=== PATIENT | female | born 1965 | race Caucasian/White ===

== ENCOUNTER → 2017-07-03 | Outpatient (CLI) | payer OTHER ==
--- NOTE | 2017-07-03 15:50 | WOMENS IMAGING REPORT ---
EXAM DESCRIPTION: BILAT DIAGNOSTIC MAMMO W/CAD; U/S BREAST UNILAT LIMITED COMPLETED DATE/TIME: 07/03/2017 8:27 am; 07/03/2017 9:06 am REASON FOR STUDY: NODULAR DENSITY; RT BREAST N63 N63 UNSPECIFIED LUMP IN BREAST COMPARISON: None. TECHNIQUE: Standard craniocaudal and mediolateral oblique views of each breast recorded using digita l acquisition. Additional images of the right breast include a true lateral view and spot compression lateral and CC views. LIMITATIONS: None. FINDINGS: RIGHT BREAST MASSES: No suspicious masses. CALCIFICATIONS: Benign-appearing calcifications. No suspicious calcifications. ARCHITECTURAL DISTORTION: None. DEVELOPING DENSITY: None. ASYMMETRY: None noted. OTHER: No other significant findings. LEFT BREAST MASSES: No suspicious masses. CALCIFICATIONS: Benign-appearing calcifications. No suspicious calcifications. ARCHITECTURAL DISTORTION: None. DEVELOPING DENSITY: None. ASYMMETRY: None noted. OTHER: No other significant finding. Read with the assistance of CAD: .[facility] - R2 Cenova Version 1.3 .[facility] - R2 Cenova Version 1.3 .[facility] - R2 Cenova Version 2.4 .[facility] [place] - R2 Cenova Version 2.4 .[facility] - R2 Supervisor Paper Machine Version 9.2 BREAST ULTRASOUND: TECHNIQUE: Static and dynamic grayscale images acquired of the right breast in the specific areas of clinical/mammographic concern. Selected color Doppler images recorded. ELASTOGRAPHY PERFORMED: No. LIMITATIONS: None. FINDINGS: MASS: No mass identified. Normal glandular tissue. ELASTOGRAPHY CHARACTERISTICS: Not applicable. OTHER: No other significant finding. IMPRESSION: Unremarkable bilateral mammogram. No worrisome mammographic or sonographic findings in the right breast in the area of concern. BREAST DENSITY: b. There are scattered areas of fibroglandular density. BIRAD: 2 Benign findings. RECOMMENDATION: RECOMMENDED FOLLOW UP: Birads 1 or 2: No breast imaging finding to explain the patie nt's presenting complaint. Further intervention should be based on the degree of clinical suspicion. SPECIFIC INTERVENTION/IMAGING/CONSULTATION RECOMMENDED:No additional intervention/ imaging/consultati on needed at this time. COMMUNICATION:The imaging findings were not discussed with the patient. Her referring provider has be en notified of the findings. COMMENT: The patient has been notified of the results by letter per MQSA requirements. Additional no tification policies are in place for contacting patient with suspicious or incomplete findings. Quality ID #225: The [employer] recommends an annual screening mammogram for women aged 40 years or over. This facility utilizes a reminder system to ensure that all patients receive reminder letters, and/or direct phone calls for appointments. This includes reminders for routine scr eening mammograms, diagnostic mammograms, or other Breast Imaging Interventions when appropriate. Th is patient will be placed in the appropriate reminder system. The [employer] (ACR) has developed recommendations for screening MRI of the breast s in certain patient populations, to be used in conjunction with mammography. Breast MRI surveillanc e may be appropriate for women with more than 20% lifetime risk of developing breast cancer as deter mined by genetic testing, significant family history of the disease, or history of mantle radiation f or Hodgkins Disease. ACR Practice Guidelines 2008. TECHNICAL DOCUMENTATION: FINDING NUMBER: (1) ASSESSMENT: (1) JOB ID: [id number] [employer]- All Rights Reserved
--- NOTE | 2017-07-03 15:50 | WOMENS IMAGING REPORT ---
EXAM DESCRIPTION: BILAT DIAGNOSTIC MAMMO W/CAD; U/S BREAST UNILAT LIMITED COMPLETED DATE/TIME: 07/03/2017 8:27 am; 07/03/2017 9:06 am REASON FOR STUDY: NODULAR DENSITY; RT BREAST N63 N63 UNSPECIFIED LUMP IN BREAST COMPARISON: None. TECHNIQUE: Standard craniocaudal and mediolateral oblique views of each breast recorded using digita l acquisition. Additional images of the right breast include a true lateral view and spot compression lateral and CC views. LIMITATIONS: None. FINDINGS: RIGHT BREAST MASSES: No suspicious masses. CALCIFICATIONS: Benign-appearing calcifications. No suspicious calcifications. ARCHITECTURAL DISTORTION: None. DEVELOPING DENSITY: None. ASYMMETRY: None noted. OTHER: No other significant findings. LEFT BREAST MASSES: No suspicious masses. CALCIFICATIONS: Benign-appearing calcifications. No suspicious calcifications. ARCHITECTURAL DISTORTION: None. DEVELOPING DENSITY: None. ASYMMETRY: None noted. OTHER: No other significant finding. Read with the assistance of CAD: .[facility] - R2 Cenova Version 1.3 .[facility] - R2 Cenova Version 1.3 .[facility] - R2 Cenova Version 2.4 .[facility] - R2 Cenova Version 2.4 .[facility] - R2 Regional Driver Version 9.2 BREAST ULTRASOUND: TECHNIQUE: Static and dynamic grayscale images acquired of the right breast in the specific areas of clinical/mammographic concern. Selected color Doppler images recorded. ELASTOGRAPHY PERFORMED: No. LIMITATIONS: None. FINDINGS: MASS: No mass identified. Normal glandular tissue. ELASTOGRAPHY CHARACTERISTICS: Not applicable. OTHER: No other significant finding. IMPRESSION: Unremarkable bilateral mammogram. No worrisome mammographic or sonographic findings in the right breast in the area of concern. BREAST DENSITY: b. There are scattered areas of fibroglandular density. BIRAD: 2 Benign findings. RECOMMENDATION: RECOMMENDED FOLLOW UP: Birads 1 or 2: No breast imaging finding to explain the patie nt's presenting complaint. Further intervention should be based on the degree of clinical suspicion. SPECIFIC INTERVENTION/IMAGING/CONSULTATION RECOMMENDED:No additional intervention/ imaging/consultati on needed at this time. COMMUNICATION:The imaging findings were not discussed with the patient. Her referring provider has be en notified of the findings. COMMENT: The patient has been notified of the results by letter per MQSA requirements. Additional no tification policies are in place for contacting patient with suspicious or incomplete findings. Quality ID #225: [employer] recommends an annual screening mammogram for women aged 40 years or over. This facility utilizes a reminder system to ensure that all patients receive reminder letters, and/or direct phone calls for appointments. This includes reminders for routine scr eening mammograms, diagnostic mammograms, or other Breast Imaging Interventions when appropriate. Th is patient will be placed in the appropriate reminder system. The [employer] (ACR) has developed recommendations for screening MRI of the breast s in certain patient populations, to be used in conjunction with mammography. Breast MRI surveillanc e may be appropriate for women with more than 20% lifetime risk of developing breast cancer as deter mined by genetic testing, significant family history of the disease, or history of mantle radiation f or Hodgkins Disease. ACR Practice Guidelines 2008. TECHNICAL DOCUMENTATION: FINDING NUMBER: (1) ASSESSMENT: (1) JOB ID: [id number] [employer]- All Rights Reserved
== END ==
LOC: WI 07:57
DX: N60.99 Unspecified benign mammary dysplasia of unspecified breast (principal)
CPT/HCPCS: 76642; G0204; 77066

== ENCOUNTER 2017-08-02 17:06 | Emergency (ER) | payer OTHER ==
--- NOTE | 2017-08-02 18:41 | ER Document Report ---
ED Medical Screen (RME) - General Chief Complaint: Fainting Stated Complaint: SYNCOPE, THROAT PAIN Time Seen by Provider: 08/02/17 18:39 Notes: Patient reports 4 episodes of "passing out" since yesterday. She states that it can happen while she is sitting down or standing up. She states she will just suddenly find herself on the floor. She denies any pain other than in her right leg. Patient denies any previous history of DVTs or blood clots. She also feels that her right leg has been swollen. No shortness of breath. Patient has had a previous TIA and takes daily aspirin. TRAVEL OUTSIDE OF THE [place] IN LAST 30 DAYS: No - Related Data Allergies/Adverse Reactions: clarithromycin [From Biaxin] Allergy (Severe, Verified 08/02/17 17:31) Anaphylaxis levofloxacin [From Levaquin] Allergy (Severe, Verified 08/02/17 17:31) Anaphylaxis phenazopyridine HCl [From Pyridium] Adverse Reaction (Intermediate, Verified 17:31) Hallucinations Home Medications: Current Home Medications Amlodipine Besylate 10 mg PO DAILY 08/02/17 [History] Aspirin [Aspirin EC] 81 mg PO DAILY 08/02/17 [History] Bisoprolol Fumarate/Hctz [Ziac 10-6.25 mg Tablet] 1 tab PO DAILY 08/02/17 [ History] Metformin HCl 500 mg PO DAILY 08/02/17 [History] Risperidone [Risperdal] 3 mg PO DAILY 08/02/17 [History] Vortioxetine Hydrobromide [Brintellix] 20 mg PO DAILY 08/02/17 [History] Past Medical History - Past Medical History Cardiac Medical History: Reports: Hx Hypertension Denies: Hx Atrial Fibrillation, Hx Congestive Heart Failure, Hx Coronary Artery Disease, Hx Heart Attack, Hx Hypercholesterolemia, Hx Peripheral Vascular Disease, Hx Pulmonary Embolism, Hx Heart Murmur Pulmonary Medical History: Reports: Hx Asthma, Hx COPD Denies: Hx Bronchitis, Hx Pneumonia, Hx Respiratory Failure, Hx Sleep Apnea, Hx Tuberculosis Neurological Medical History: Reports: Hx Migraine. Denies: Hx Cerebrovascular Accident, Hx Seizures Endocrine Medical History: Denies: Hx Diabetes Mellitus Type 1, Hx Diabetes Mellitus Type 2 Renal/ Medical History: Denies: Hx Peritoneal Dialysis Malignancy Medical History: Denies: Hx Lung Cancer Musculoskeltal Medical History: Denies Hx Arthritis, Denies Hx Fibromyalgia, Denies Hx Multiple Sclerosis, Denies Hx Muscular Dystrophy, Reports Hx Muscle Weakness, Reports Hx Musculoskeletal Deformity, Reports Hx Musculoskeletal Trauma Skin Medical History: Reports Hx Psoriasis Psychiatric Medical History: Reports: Hx Depression, Hx Schizophrenia - schizoaffective d/o Denies: Hx Dementia Traumatic Medical History: Denies: Hx Fractures Past Surgical History: Reports: Hx Cholecystectomy, Hx Nose Surgery, Hx Orthopedic Surgery - Surgery x2 Right knee, Hx Tubal Ligation. Denies: Hx Pacemaker - Immunizations Immunizations up to date: Yes Hx Diphtheria, Pertussis, Tetanus Vaccination: Yes Physical Exam - Vital signs Vitals: Temp Pulse Resp BP Pulse Ox 98.8 F 68 20 113/70 98 08/02/17 17:31 08/02/17 17:31 08/02/17 17:31 08/02/17 17:31 08/02/17 17:31 Course - Vital Signs Vital signs: Temp Pulse Resp BP Pulse Ox 98.8 F 68 20 113/70 98 08/02/17 17:31 08/02/17 17:31 08/02/17 17:31 08/02/17 17:31 08/02/17 17:31
[2017-08-02 19:38] LABS: ABSOLUTE BASOPHILS # (AUTO) 0.1 10^3/uL (0.0-0.2); ABSOLUTE EOSINOPHILS # (AUTO) 0.1 10^3/uL (0.0-0.6); ABSOLUTE LYMPHOCYTES (AUTO) 2.5 10^3/uL (0.5-4.7); ABSOLUTE MONOCYTES (AUTO) 0.5 10^3/uL (0.1-1.4); ABSOLUTE NEUT (AUTO) 2.5 10^3/uL (1.7-8.2); EOSINOPHILS % (AUTO) 1.8 % (0-6); HEMATOCRIT 39.9 % (36.0-47.0); HEMOGLOBIN 14.1 g/dL (12.0-15.5); HGB HCT DIFFERENCE 2.4; LYMPHOCYTES % (AUTO) 43.9 % (13-45); MEAN CORPUSCULAR HEMOGLOBIN 31.2 pg (27.0-33.4); MEAN CORPUSCULAR HGB CONC 35.4 g/dL (32.0-36.0); MEAN CORPUSCULAR VOLUME 88 fl (80-97); MONOCYTES % (AUTO) 8.5 % (3-13); RED BLOOD COUNT 4.52 10^6/uL (3.72-5.28); RED CELL DISTRIBUTION WIDTH 13.1 % (11.5-14.0); SEGMENTED NEUTROPHILS % (AUTO) 44.8 % (42-78); WHITE BLOOD COUNT 5.7 10^3/uL (4.0-10.5)
[2017-08-02 19:41] LABS: APPEARANCE,URINE CLEAR; BILIRUBIN,URINE NEGATIVE (NEGATIVE); GLUCOSE, URINE NEGATIVE (NEGATIVE); KETONES,URINE NEGATIVE (NEGATIVE); LEUKOCYTE ESTERASE,URINE SMALL (NEGATIVE); NITRITE,URINE NEGATIVE (NEGATIVE); PROTEIN,URINE NEGATIVE (NEGATIVE); URINE SPECIFIC GRAVITY 1.011; UROBILINOGEN,URINE NEGATIVE mg/dL (<2.0)
[2017-08-02 19:56] LABS: ALANINE AMINOTRANSFERASE 21 U/L (9-52); ALBUMIN 3.9 g/dL (3.5-5.0); ALKALINE PHOSPHATASE 48 U/L (38-126); ANION GAP 11 (5-19); ASPARTATE AMINO TRANSFERASE 16 U/L (14-36); BILIRUBIN,DIRECT 0.2 mg/dL (0.0-0.4); BILIRUBIN,TOTAL 0.2 mg/dL (0.2-1.3); BLOOD UREA NITROGEN 14 mg/dL (7-20); CALCIUM 9.8 mg/dL (8.4-10.2); CARBON DIOXIDE 30 mmol/L (22-30); CHLORIDE 102 mmol/L (98-107); CREATININE RESULT 0.77 mg/dL (0.52-1.25); GLUCOSE 69 mg/dL (75-110); POTASSIUM 3.6 mmol/L (3.6-5.0); TOTAL PROTEIN 6.2 g/dL (6.3-8.2)
--- NOTE | 2017-08-02 20:25 | ER Document Report ---
ED General - General Chief Complaint: Fainting Stated Complaint: SYNCOPE, THROAT PAIN Time Seen by Provider: 08/02/17 18:39 Notes: Patient is a 51-year-old female with a past history of diabetes and schizophrenia that comes emergency department for chief complaint of 4 episodes since yesterday where she passed out. She states she was standing once and she was sitting at other times. She states that she suddenly found herself on the floor. She denies chest pain, shortness of breath, dizziness beforehand or afterwards. She states her only pain is in her right leg which has been hurting for some time. She states her leg feels swollen. Denies smoking, DVT/ PE history. Other past medical history includes hypertension, TIA, migraine, takes daily baby aspirin. TRAVEL OUTSIDE OF THE [place] IN LAST 30 DAYS: No - Related Data Allergies/Adverse Reactions: clarithromycin [From Biaxin] Allergy (Severe, Verified 08/02/17 17:31) Anaphylaxis levofloxacin [From Levaquin] Allergy (Severe, Verified 08/02/17 17:31) Anaphylaxis phenazopyridine HCl [From Pyridium] Adverse Reaction (Intermediate, Verified 17:31) Hallucinations Home Medications: Current Home Medications Amlodipine Besylate 10 mg PO DAILY 08/02/17 [History] Aspirin [Aspirin EC] 81 mg PO DAILY 08/02/17 [History] Bisoprolol Fumarate/Hctz [Ziac 10-6.25 mg Tablet] 1 tab PO DAILY 08/02/17 [ History] Metformin HCl 500 mg PO DAILY 08/02/17 [History] Risperidone [Risperdal] 3 mg PO DAILY 08/02/17 [History] Vortioxetine Hydrobromide [Brintellix] 20 mg PO DAILY 08/02/17 [History] Past Medical History - General Information source: Patient - Social History Smoking Status: Never Smoker Chew tobacco use (# tins/day): No Frequency of alcohol use: None Drug Abuse: None Lives with: Family Family History: Reviewed & Not Pertinent, Hypertension Patient has suicidal ideation: No Patient has homicidal ideation: No - Past Medical History Cardiac Medical History: Reports: Hx Hypertension Denies: Hx Atrial Fibrillation, Hx Congestive Heart Failure, Hx Coronary Artery Disease, Hx Heart Attack, Hx Hypercholesterolemia, Hx Peripheral Vascular Disease, Hx Pulmonary Embolism, Hx Heart Murmur Pulmonary Medical History: Reports: Hx Asthma, Hx COPD Denies: Hx Bronchitis, Hx Pneumonia, Hx Respiratory Failure, Hx Sleep Apnea, Hx Tuberculosis Neurological Medical History: Reports: Hx Migraine. Denies: Hx Cerebrovascular Accident, Hx Seizures Endocrine Medical History: Denies: Hx Diabetes Mellitus Type 1, Hx Diabetes Mellitus Type 2 Renal/ Medical History: Denies: Hx Peritoneal Dialysis Malignancy Medical History: Denies: Hx Lung Cancer Musculoskeltal Medical History: Denies Hx Arthritis, Denies Hx Fibromyalgia, Denies Hx Multiple Sclerosis, Denies Hx Muscular Dystrophy, Reports Hx Muscle Weakness, Reports Hx Musculoskeletal Deformity, Reports Hx Musculoskeletal Trauma Skin Medical History: Reports Hx Psoriasis Psychiatric Medical History: Reports: Hx Depression, Hx Schizophrenia - schizoaffective d/o Denies: Hx Dementia Traumatic Medical History: Denies: Hx Fractures Past Surgical History: Reports: Hx Cholecystectomy, Hx Nose Surgery, Hx Orthopedic Surgery - Surgery x2 Right knee, Hx Tubal Ligation. Denies: Hx Pacemaker - Immunizations Immunizations up to date: Yes Hx Diphtheria, Pertussis, Tetanus Vaccination: Yes Review of Systems - Review of Systems Constitutional: See HPI EENT: No symptoms reported Cardiovascular: See HPI Respiratory: No symptoms reported Gastrointestinal: No symptoms reported Genitourinary: No symptoms reported Female Genitourinary: No symptoms reported Musculoskeletal: No symptoms reported Skin: No symptoms reported Hematologic/Lymphatic: No symptoms reported Neurological/Psychological: See HPI Physical Exam - Vital signs Vitals: Temp Pulse Resp BP Pulse Ox 98.8 F 68 20 113/70 98 08/02/17 17:31 08/02/17 17:31 08/02/17 17:31 08/02/17 17:31 08/02/17 17:31 Interpretation: Normal - General General appearance: Appears well, Alert In distress: None - HEENT Head: Normocephalic, Atraumatic Eyes: Normal Pupils: PERRL - Respiratory Respiratory status: No respiratory distress Chest status: Nontender Breath sounds: Normal. No: Decreased air movement, Wheezing Chest palpation: Normal - Cardiovascular Rhythm: Regular. No: Tachycardia Heart sounds: Normal auscultation, S1 appreciated, S2 appreciated Murmur: No - Abdominal Inspection: Normal Distension: No distension Bowel sounds: Normal Tenderness: Nontender. No: Tender, Guarding Organomegaly: No organomegaly - Back Back: Normal, Nontender. No: Tender - Extremities General upper extremity: Normal inspection, Nontender, Normal color, Normal ROM , Normal temperature General lower extremity: Normal inspection, Nontender, Normal color, Normal ROM , Normal temperature, Normal weight bearing. No: Michelle's sign - Neurological Neuro grossly intact: Yes - Chronic pill-rolling tremor of the right arm Cognition: Normal Orientation: AAOx4 Clare Coma Scale Eye Opening: Spontaneous Clare Coma Scale Verbal: Oriented Zhanna Coma Scale Motor: Obeys Commands Zhanna Coma Scale Total: 15 Speech: Normal Motor strength normal: LUE, RUE, LLE, RLE Sensory: Normal - Psychological Associated symptoms: Normal mood. No: Normal affect - Flat affect - Skin Skin Temperature: Warm Skin Moisture: Dry Skin Color: Normal Course - Re-evaluation Re-evalutation: EKG sinus rhythm with no short VT interval or concerning findings. Patient is a slightly strange affect but she is cooperative, attentive. Family members at bedside. Unremarkable extremity exam, normal neurological exam except for a chronic tremor in her right arm, venous Doppler reviewed and negative, laboratory workup completely unremarkable except for slight hypoglycemia, patient was given food and afterwards she states she feels much better. Patient admits that she almost eats nothing, she is about once a day, states that she usually just does not feel like it, denies any difficulty with eating, soft abdomen on exam. Advised that her low blood sugar could be causing her symptoms, recommend she hold her metformin for now, follow-up closely with her primary to have her labs rechecked, discussed return precautions. Also discussed sleep apnea with patient, she states she will follow-up with her primary care provider for this as well and states she is ready to leave now. - Vital Signs Vital signs: Temp Pulse Resp BP Pulse Ox 98.8 F 68 20 105/78 94 08/02/17 17:31 08/02/17 17:31 08/02/17 22:01 08/02/17 22:01 08/02/17 22:01 - Laboratory Result Diagrams: 08/02/17 19:05 08/02/17 19:05 Laboratory results interpreted by me: 08/02/17 08/02/17 19:05 19:05 Glucose 69 L Total Protein 6.2 L Ur Leukocyte Esterase SMALL H Discharge - Discharge Clinical Impression: Syncopal episodes Qualifiers: Syncope type: unspecified Qualified Code(s): R55 - Syncope and collapse Condition: Stable Disposition: HOME, SELF-CARE Additional Instructions: The exact cause of your symptoms is not clear. Your blood sugar was low here on evaluation and you eating very little could be the cause of this. The sleep apnea, tiredness, and falling asleep can also be a component. Recommendation is to stop metformin for now, follow-up for additional primary care evaluation, increase food intake. Return to the emergency department for any concerning symptoms. Syncopal Episode Syncope (fainting or near-fainting) can occur from many different health problems. Or it can be a simple fainting spell requiring no treatment. It is safe for you to go home, but further evaluation will likely be necessary. Your work-up may include tests for internal bleeding, heart disease, medication problems, or near-strokes. Tests are not always required, however, depending on the nature of your problem. The warning signs of an impending faint include: dizziness, lightheadedness , nausea, hot flashes, tingling, and weakness. If this happens, lay down and put your feet up, then wait until all of these symptoms have passed before standing up again. If these episodes become recurrent, or if you develop chest pain, heart palpitations, mental confusion, blurred vision, or headache, then you should call the physician, or go to the emergency room. Referrals: JEFFREY WYNN MD [Primary Care Provider] - Follow up as needed
[2017-08-02 22:17] VITALS: BP 105/78
--- NOTE | 2017-08-03 08:10 | XCELERA REPORT ---
[address] [address] Lower Extremity Venous Evaluation Name: OLY SOTELO Age: 51 yrs Gender: Female : 1965 Patient Status: Emergency Patient Location: ER Study Date: 08/02/2017 08:38 PM Procedure: Color flow and duplex imaging of the veins of the right lower extremity as well as the left Common Femoral vein. Reason For Study: right leg pain Ordering Physician: SARY LIM Performed By: Inna Nicolas Right Sided Venous Evaluation Normal vessel filling wall to wall, compression and augmentation as well as Colour flow down to the infrageniculate veins. Left Sided Venous Evaluation The left common femoral vein is fully compressible. Spontaneous and phasic flow is present in the left common femoral vein. Interpretation Summary No duplex evidence of DVT or obstruction in the right lower extremity nor in the left Common Femoral vein. : SARY LIM > Kareem Munguia
--- NOTE | 2017-08-03 20:26 | EKG REPORT ---
SEVERITY:- NORMAL ECG - SINUS RHYTHM : Confirmed by: Carly Bhatt MD 03-Aug-2017 20:25:07
== END 2017-08-02 22:28 | disposition home or self-care (01) ==
LOC: ER 17:06
DX: E11.649 Type 2 diabetes mellitus with hypoglycemia without coma (principal); Z79.84 Long term (current) use of oral hypoglycemic drugs; R55 Syncope and collapse; M79.604 Pain in right leg; R25.1 Tremor, unspecified; I10 Essential (primary) hypertension; J44.9 Chronic obstructive pulmonary disease, unspecified; Z86.73 Personal history of transient ischemic attack (TIA), and cerebral infarction without residual deficits; Z79.82 Long term (current) use of aspirin; Z88.1 Allergy status to other antibiotic agents
CPT/HCPCS: 36415; 80053; 81001; 85025; 93005; 93010; 93971; 99284

== ENCOUNTER 2019-06-16 13:01 | Observation (INO) | payer MEDICAID ==
[2019-06-16] MEDS ORDERED: METHYLPREDNISOLONE INJ 125 MG/2 ML SDV IV ONE (13:20)
[2019-06-16] MEDS ORDERED: TRANEXAMIC ACID INJ/PF 1,000 MG/10 ML SDV IV ONE (13:21)
[2019-06-16] MEDS ORDERED: NORMAL SALINE 250 ML IV PRN ×2 (13:21→19:53)
[2019-06-16] MEDS ORDERED: RACEPINEPHRINE HCL 2.25% NEB 0.5 ML AMPUL NEB ONE (13:21)
--- NOTE | 2019-06-16 13:25 | ER Document Report ---
ED General - General Chief Complaint: Swelling of Tongue Stated Complaint: WEAKNESS Primary Care Provider: ILEANA ROBERTS MD [Primary Care Provider] - Follow up as needed Notes: 53-year-old female presents emergency department stating that after taking her medications this morning she went back to sleep when she woke up she could not breathe or swallow. States it is feeling progressively worse. Denies ever having had this happen before. Denies any new exposures, denies any other symptoms. States that she is having some difficulty talking due to feeling like her mouth and throat is swelling. TRAVEL OUTSIDE OF THE [place] IN LAST 30 DAYS: No - Related Data Allergies/Adverse Reactions: clarithromycin [From Biaxin] Allergy (Severe, Verified 08/02/17 17:31) Anaphylaxis levofloxacin [From Levaquin] Allergy (Severe, Verified 08/02/17 17:31) Anaphylaxis phenazopyridine HCl [From Pyridium] Adverse Reaction (Intermediate, Verified 08/02/17 17:31) Hallucinations Past Medical History - General Information source: Patient, Emergency Med Personnel - Social History Smoking Status: Unknown if Ever Smoked Chew tobacco use (# tins/day): No Drug Abuse: None Family History: Reviewed & Not Pertinent, Hypertension - Past Medical History Cardiac Medical History: Reports: Hx Hypertension Denies: Hx Atrial Fibrillation, Hx Congestive Heart Failure, Hx Coronary Artery Disease, Hx Heart Attack, Hx Hypercholesterolemia, Hx Peripheral Vascular Disease, Hx Pulmonary Embolism, Hx Heart Murmur Pulmonary Medical History: Reports: Hx Asthma, Hx COPD Denies: Hx Bronchitis, Hx Pneumonia, Hx Respiratory Failure, Hx Sleep Apnea, Hx Tuberculosis Neurological Medical History: Reports: Hx Migraine. Denies: Hx Cerebrovascular Accident, Hx Seizures Endocrine Medical History: Denies: Hx Diabetes Mellitus Type 1, Hx Diabetes Mellitus Type 2 Renal/ Medical History: Denies: Hx Peritoneal Dialysis Malignancy Medical History: Denies: Hx Lung Cancer Musculoskeletal Medical History: Denies Hx Arthritis, Denies Hx Fibromyalgia, Denies Hx Multiple Sclerosis, Denies Hx Muscular Dystrophy, Reports Hx Muscle Weakness, Reports Hx Musculoskeletal Deformity, Reports Hx Musculoskeletal Trauma Skin Medical History: Reports Hx Psoriasis Psychiatric Medical History: Reports: Hx Depression, Hx Schizophrenia - schizoaffective d/o Denies: Hx Dementia Traumatic Medical History: Denies: Hx Fractures Past Surgical History: Reports: Hx Cholecystectomy, Hx Nose Surgery, Hx Orthopedic Surgery - Surgery x2 Right knee, Hx Tubal Ligation. Denies: Hx Pacemaker - Immunizations Immunizations up to date: Yes Hx Diphtheria, Pertussis, Tetanus Vaccination: Yes Review of Systems - Review of Systems Constitutional: No symptoms reported EENT: See HPI Cardiovascular: No symptoms reported Respiratory: See HPI Neurological/Psychological: Other - Parkinson at baseline. -: Yes All other systems reviewed and negative Physical Exam - Vital signs Vitals: Pulse Resp BP Pulse Ox 79 14 136/84 H 98 06/16/19 13:21 06/16/19 13:21 06/16/19 13:21 06/16/19 13:21 - Notes Notes: GENERAL: Alert, overweight, appears somewhat nervous. HEAD: Normocephalic, atraumatic EYES: Pupils equal, round and reactive to light, extraocular movements intact. ENT: Oral mucosa moist, tongue midline, no tongue swelling, limited mouth opening, Mallampati 4, with tongue depressor I am able to see significant uvular edema though there is no erythema. No edema to the lips or tongue. No pooling of secretions. Patient is not spitting. NECK: Full range of motion, supple, trachea midline. LUNGS: Clear to auscultation bilaterally, no wheezes, rales or rhonchi, no respiratory distress. HEART: Regular rate and rhythm, no murmurs, gallops, rubs. ABDOMEN: Soft, nontender, nondistended, bowel sounds present in all 4 quadrants. EXTREMITIES: Moves all 4 extremities spontaneously, no edema, radial and dorsalis pedis pulses 2/4 bilaterally. No cyanosis. NEUROLOGICAL: Alert and oriented x3, voice slightly muffled but otherwise normal, no facial droop, tongue is midline. Moves all 4 extremities equally, 5 out of 5 muscle strength, coarse tremor at baseline, biceps and patellar DTRs 2+ bilaterally. PSYCH: Mildly anxious. SKIN: Warm, Dry, normal turgor, no rashes or lesions noted. Course - Re-evaluation Re-evalutation: 06/16/19 15:04 Patient was rechecked after receiving Solu-Medrol, racemic epinephrine, TXA and has not yet received FFP. Patient states that she can open her mouth more but then states she is not feeling any better. When I pointed out to her that opening her mouth more is an improvement she agreed that that is an improvement. She is also stating she is quite hungry and thirsty and would like something to drink. Patient states in the next sentence that she does not feel like she can swallow anything including her own spit. Discussed with patient that she is not drooling and she is not spitting so clearly she is able to swallow her own saliva. Patient is reassured by this. Recheck of her oropharynx reveals decreased uvular edema. CT scan of the neck is pending. 06/16/19 19:59 CBC unremarkable, coags normal, CMP shows elevated glucose at 128 otherwise unremarkable, soft tissue scan of the neck shows mild posterior pharyngeal edema and uvular edema. No abscess. No obstruction. Patient is now able to drink jhony philip. Is complaining that she is hungry but she still feels like there is swelling and some difficulty swallowing. Patient will be trialed on saltines and observed in the ICU. Discussed the case with Dr. Coughlin who agrees to place the patient on his service in the ICU and observation status. - Vital Signs Vital signs: Temp Pulse Resp BP Pulse Ox 97 F L 81 13 122/105 H 97 06/16/19 16:56 06/16/19 16:56 06/16/19 19:12 06/16/19 19:12 06/16/19 19:12 - Laboratory Result Diagrams: 06/16/19 13:13 06/16/19 13:13 Laboratory results interpreted by me: 06/16/19 06/16/19 06/16/19 13:13 13:13 13:13 RDW 14.7 H APTT 20.3 L Glucose 128 H Total Protein 5.9 L Critical Care Note - Critical Care Note Total time excluding time spent on procedures (mins): 45 Discharge - Discharge Clinical Impression: Uvular edema Angioedema Qualifiers: Encounter type: initial encounter Qualified Code(s): T78.3XXA - Angioneurotic edema, initial encounter Condition: Fair Disposition: ADMITTED OBSERVATION Admitting Provider: Ced (Hospitalist) Unit Admitted: ICU Referrals: ILEANA ROBERTS MD [Primary Care Provider] - Follow up as needed
[2019-06-16 13:32] LABS: ABSOLUTE BASOPHILS # (AUTO) 0.1 10^3/uL (0.0-0.2); ABSOLUTE EOSINOPHILS # (AUTO) 0.1 10^3/uL (0.0-0.6); ABSOLUTE LYMPHOCYTES (AUTO) 1.7 10^3/uL (0.5-4.7); ABSOLUTE MONOCYTES (AUTO) 0.4 10^3/uL (0.1-1.4); ABSOLUTE NEUT (AUTO) 2.9 10^3/uL (1.7-8.2); BASOPHILS % (AUTO) 1.3 % (0-2); EOSINOPHILS % (AUTO) 2.8 % (0-6); HEMATOCRIT 39.6 % (36.0-47.0); HEMOGLOBIN 13.1 g/dL (12.0-15.5); LYMPHOCYTES % (AUTO) 32.2 % (13-45); MEAN CORPUSCULAR HEMOGLOBIN 28.3 pg (27.0-33.4); MEAN CORPUSCULAR VOLUME 86 fl (80-97); MONOCYTES % (AUTO) 7.2 % (3-13); PLATELET COUNT 265 10^3/uL (150-450); RED BLOOD COUNT 4.62 10^6/uL (3.72-5.28); RED CELL DISTRIBUTION WIDTH 14.7 % (11.5-14.0); SEGMENTED NEUTROPHILS % (AUTO) 56.5 % (42-78); TOTAL CELLS COUNTED % (AUTO) 100 %; WHITE BLOOD COUNT 5.2 10^3/uL (4.0-10.5)
[2019-06-16 13:38] LABS: PARTIAL THROMBOPLASTIN TIME 20.3 SEC (23.5-35.8); PROTHROMBIN TIME 12.1 SEC (11.4-15.4)
[2019-06-16 13:47] LABS: ALBUMIN 3.5 g/dL (3.5-5.0); ALKALINE PHOSPHATASE 79 U/L (38-126); ANION GAP 6 (5-19); ASPARTATE AMINO TRANSFERASE 21 U/L (14-36); BILIRUBIN,DIRECT 0.2 mg/dL (0.0-0.4); BILIRUBIN,TOTAL 0.2 mg/dL (0.2-1.3); BLOOD UREA NITROGEN 10 mg/dL (7-20); CALCIUM 9.1 mg/dL (8.4-10.2); CARBON DIOXIDE 29 mmol/L (22-30); CHLORIDE 104 mmol/L (98-107); GLUCOSE 128 mg/dL (75-110); POTASSIUM 4.8 mmol/L (3.6-5.0); TOTAL PROTEIN 5.9 g/dL (6.3-8.2)
--- NOTE | 2019-06-16 15:15 | RADIOLOGY REPORT (SQ) ---
EXAM DESCRIPTION: CT SOFT TISSUE NECK WITH COMPLETED DATE/TIME: 06/16/2019 2:58 pm REASON FOR STUDY: uvular edema COMPARISON: None. TECHNIQUE: Post IV contrasted scanning from skull base through lung apices with review of bone, soft tissue and lung windows. Reconstructed coronal and sagittal MPR images reviewed. All images stored on PACS. All CT scanners at this facility use dose modulation, iterative reconstruction, and/or weight based d osing when appropriate to reduce radiation dose to as low as reasonably achievable (ALARA). [facility]: Dose Right [facility]: CareDose [facility]: Dose Right [facility]: Teradose 4D [facility]: [employer] CONTRAST TYPE AND DOSE: contrast/concentration: Isovue 350.00 mg/ml; Total Contrast Delivered: 75.0 ml; Total Saline Delivered: 55.0 ml RENAL FUNCTION: GFR > 60. RADIATION DOSE: CT Rad equipment meets quality standard of care and radiation dose reduction techniq ues were employed. CTDIvol: 19.4 mGy. DLP: 525 mGy-cm. . LIMITATIONS: None. FINDINGS: SKULL BASE: Intact. MAJOR SALIVARY GLANDS: No solid or cystic masses. No inflammatory changes. LYMPHADENOPATHY: Shotty subcentimeter bilateral nodes without asymmetry. No worrisome enlarged nodes . MUCOSAL MASSES OR ASYMMETRY: Mild posterior or pharyngeal and uvula thickening, as suggested in clini zac history. No evidence of abscess, however. Mild or pharyngeal airway narrowing is suggested. Re maining mucosal spaces look normal. No tonsillar abscess. LARYNX/CORDS: No abnormal findings. VASCULAR STRUCTURES: The major vessels are patent. LUNG APICES: Clear. BONES: Intact. THYROID: Normal size. No masses. PARANASAL SINUSES: Clear. OTHER: No other significant finding. IMPRESSION: 1. No airway obstruction or abscess. Findings as above. TECHNICAL DOCUMENTATION: JOB ID: [id number] Quality ID # [id number]: Final reports with documentation of one or more dose reduction techniques (e.g., Au tomated exposure control, adjustment of the mA and/or kV according to patient size, use of iterative reconstruction technique) 2010 [employer]- All Rights Reserved Reading location - IP/workstation name: [email or web address]
[2019-06-16] MEDS ORDERED: IPRATROPIUM/ALBUTEROL 0.5-2.5 MG/3 ML AMPUL NEB PRN (19:57)
[2019-06-16] MEDS ORDERED: DIPHENHYDRAMINE HCL 50 MG/ML VIAL IV PRN (19:57)
[2019-06-16] MEDS ORDERED: HYDROCODONE/ACETAMINOPHEN 5-325 MG TABLET PO PRN (22:34)
[2019-06-16] MEDS: METHYLPREDNISOLONE INJ 125 MG/2 ML SDV IV SCH (23:04)
[2019-06-16] MEDS: FAMOTIDINE INJ/PF 20 MG/2 ML SDV IV SCH (23:05)
[2019-06-16] MEDS: HEPARIN SOD (PORCINE) 5,000 UNIT/ML 1 ML VIAL SUBCUT SCH (23:06)
[2019-06-16] MEDS: NORMAL SALINE 1000 ML 1,000 ML IV PRN (23:07)
[2019-06-17] MEDS: IPRATROPIUM/ALBUTEROL 0.5-2.5 MG/3 ML AMPUL NEB SCH ×3 (00:30→15:44)
[2019-06-17] MEDS ORDERED: GLUCAGON,HUMAN RECOMB 1 MG INJ IM PRN (01:14)
[2019-06-17] MEDS ORDERED: DEXTROSE 50%-WATER 25 GM/50 ML DISP.SYRIN IV PRN ×2 (01:14)
[2019-06-17] MEDS ORDERED: DEXTROSE 40% GEL 15 GM TUBE PO PRN ×2 (01:14)
[2019-06-17 04:08] LABS: ABSOLUTE LYMPHOCYTES (AUTO) 0.5 10^3/uL (0.5-4.7); BASOPHILS % (AUTO) 0.5 % (0-2); HEMATOCRIT 35.6 % (36.0-47.0); HEMOGLOBIN 11.6 g/dL (12.0-15.5); LYMPHOCYTES % (AUTO) 11.7 % (13-45); MEAN CORPUSCULAR HEMOGLOBIN 27.8 pg (27.0-33.4); MEAN CORPUSCULAR HGB CONC 32.7 g/dL (32.0-36.0); MEAN CORPUSCULAR VOLUME 85 fl (80-97); MONOCYTES % (AUTO) 0.5 % (3-13); PLATELET COUNT 217 10^3/uL (150-450); RED BLOOD COUNT 4.19 10^6/uL (3.72-5.28); RED CELL DISTRIBUTION WIDTH 14.8 % (11.5-14.0); SEGMENTED NEUTROPHILS % (AUTO) 87.3 % (42-78); TOTAL CELLS COUNTED % (AUTO) 100 %; WHITE BLOOD COUNT 4.6 10^3/uL (4.0-10.5)
[2019-06-17] MEDS: NORMAL SALINE 1000 ML 1,000 ML IV PRN (04:10)
[2019-06-17 04:26] LABS: ANION GAP 9 (5-19); BLOOD UREA NITROGEN 10 mg/dL (7-20); CARBON DIOXIDE 26 mmol/L (22-30); CHLORIDE 103 mmol/L (98-107); GLUCOSE 281 mg/dL (75-110); POTASSIUM 4.1 mmol/L (3.6-5.0)
--- NOTE | 2019-06-17 05:20 | PDOC H&P ---
History of Present Illness Admission Date/PCP: 06/16/19 20:06 ILEANA ROBERTS MD Patient complains of: Tongue swelling History of Present Illness: OLY SOTELO is a 53 year old female with past medical history of Parkinson's disease, diabetes, morbid obesity and bipolar. She presents with 12 hours of swelling of her tongue and a change of quality of her voice prompting evaluation emergency room. She has an unremarkable work-up with exception to subjective symptoms, and negative CT neck but has persistent sensation of throat swelling. She receives TXA, FFP, Solu-Medrol and referred to the hospitalist for admission. Patient admits previous episode but does not recall the trigger. She denies recent change of medications or JEAN CLAUDE inhibitor use. She has no wheezing, stridor, drooling or tongue enlargement. Past Medical History Cardiac Medical History: Reports: Hypertension Denies: Atrial Fibrillation, Congestive Heart Failure, Coronary Artery Disease, Myocardial Infarction, Hyperlipidema, Peripheral Vascular Disease, Pulmonary Embolism, Heart Murmur Pulmonary Medical History: Reports: Asthma, Chronic Obstructive Pulmonary Disease (COPD) Denies: Bronchitis, Pneumonia, Respiratory Failure, Sleep Apnea, Tuberculosis Neurological Medical History: Reports: Migraine Denies: Seizures Endocrine Medical History: Reports: Diabetes Mellitus Type 2, Obesity Denies: Diabetes Mellitus Type 1 Malignancy Medical History: Denies: Lung Cancer Musculoskeltal Medical History: Denies: Arthritis, Fibromyalgia Skin Medical History: Reports: Psoriasis Psychiatric Medical History: Reports: Depression Denies: Dementia Past Surgical History Past Surgical History: Reports: Cholecystectomy, Orthopedic Surgery - Surgery x2 Right knee, Tubal Ligation Denies: Amputation, Pacemaker Social History Information Source: Patient, Emergency Med Personnel, [facility], [facility]1983 Records Smoking Status: Unknown if Ever Smoked Frequency of Alcohol Use: None Hx Recreational Drug Use: No Hx Prescription Drug Abuse: No - Advance Directive Resuscitation Status: Full Code Family History Family History: Hypertension Parental Family History Reviewed: Yes Children Family History Reviewed: Yes Sibling(s) Family History Reviewed.: Yes Medication/Allergy Home Medications: Trazodone HCl 150 mg PO QHS 12/21/15 Aspirin [Aspirin EC] 81 mg PO DAILY 08/02/17 Hydrocodone Bit/Acetaminophen [Hydrocodon-Acetaminophen 5-325] 1 tab PO Q6 PRN MDD 4 06/16/19 Bupropion HCl [Wellbutrin Sr 100 mg Tablet] 1 tab PO DAILY 06/17/19 Carbidopa/Levodopa [Carbidopa-Levo 25-100 mg Odt] 1.5 tab PO TID 06/17/19 Gabapentin [Neurontin 300 mg Capsule] 300 mg PO Q12 06/17/19 Melatonin [Melatonin 5 mg Tablet] 5 mg PO QHS PRN 06/17/19 Nateglinide [Starlix 60 Mg Tablet] 60 mg PO WLUNCH 06/17/19 Nateglinide [Starlix 60 Mg Tablet] 60 mg PO WSUPPER 06/17/19 Pantoprazole Sodium 40 mg PO QAM 06/17/19 Polyethylene Glycol 3350 [Miralax Powder 17 gm/Packet] 17 gm PO Q2D 06/17/19 Potassium Gluconate [Potassium] 99 mg PO DAILY 06/17/19 Pravastatin Sodium 40 mg PO QHS 06/17/19 Ropinirole HCl [Requip] 3 mg PO TID 06/17/19 Sertraline HCl [Zoloft] 100 mg PO DAILY 06/17/19 Sucralfate [Carafate 1 gm Tablet] 1 gm PO ACHS 06/17/19 Tramadol HCl [Ultram 50 mg Tablet] 50 mg PO Q6HP PRN 06/17/19 Allergies/Adverse Reactions: clarithromycin [From Biaxin] Allergy (Severe, Verified 08/02/17 17:31) Anaphylaxis levofloxacin [From Levaquin] Allergy (Severe, Verified 08/02/17 17:31) Anaphylaxis phenazopyridine HCl [From Pyridium] Adverse Reaction (Intermediate, Verified 17:31) Hallucinations Review of Systems Constitutional: ABSENT: chills, fever(s), headache(s), weight gain, weight loss Eyes: ABSENT: visual disturbances Ears: ABSENT: hearing changes Cardiovascular: ABSENT: chest pain, dyspnea on exertion, edema, orthropnea, palpitations Respiratory: ABSENT: cough, hemoptysis Gastrointestinal: ABSENT: abdominal pain, constipation, diarrhea, hematemesis, hematochezia, nausea, vomiting Genitourinary: ABSENT: dysuria, hematuria Musculoskeletal: ABSENT: joint swelling Integumentary: ABSENT: rash, wounds Neurological: ABSENT: abnormal gait, abnormal speech, confusion, dizziness, focal weakness, syncope Psychiatric: ABSENT: anxiety, depression, homidical ideation, suicidal ideation Endocrine: ABSENT: cold intolerance, heat intolerance, polydipsia, polyuria Hematologic/Lymphatic: ABSENT: easy bleeding, easy bruising Physical Exam Vital Signs: Temp Pulse Resp BP Pulse Ox 98.4 F 70 17 160/78 H 100 06/17/19 03:40 06/17/19 00:30 06/17/19 03:00 06/17/19 02:52 06/17/19 02:52 Intake & Output 06/15/19 06/16/19 06/17/19 11:59 11:59 11:59 Intake Total 592 Output Total 300 Balance 292 Weight 113 kg General appearance: PRESENT: no acute distress, cooperative, morbidly obese, well-developed, well-nourished Head exam: PRESENT: atraumatic, normocephalic Eye exam: PRESENT: conjunctiva pink, EOMI, PERRLA. ABSENT: scleral icterus Ear exam: PRESENT: normal external ear exam Mouth exam: PRESENT: moist, tongue midline Neck exam: ABSENT: carotid bruit, JVD, lymphadenopathy, thyromegaly Respiratory exam: PRESENT: clear to auscultation malena. ABSENT: rales, rhonchi, wheezes Cardiovascular exam: PRESENT: RRR. ABSENT: diastolic murmur, rubs, systolic murmur Pulses: PRESENT: normal dorsalis pedis pul Vascular exam: PRESENT: normal capillary refill GI/Abdominal exam: PRESENT: normal bowel sounds, soft. ABSENT: distended, gua rding, mass, organolmegaly, rebound, tenderness Rectal exam: PRESENT: deferred Extremities exam: PRESENT: full ROM. ABSENT: calf tenderness, clubbing, pedal edema Neurological exam: PRESENT: alert, awake, oriented to person, oriented to place, oriented to time, oriented to situation, CN II-XII grossly intact. ABSENT: jessi r sensory deficit Psychiatric exam: PRESENT: appropriate affect, normal mood. ABSENT: homicidal ideation, suicidal ideation Skin exam: PRESENT: dry, intact, warm. ABSENT: cyanosis, rash Results Laboratory Results: 06/17/19 03:49 06/17/19 03:49 06/16/19 06/16/19 06/16/19 13:13 13:13 13:28 WBC 5.2 RBC 4.62 Hgb 13.1 Hct 39.6 MCV 86 MCH 28.3 MCHC 33.0 RDW 14.7 H Plt Count 265 Seg Neutrophils % 56.5 Sodium 139.2 Potassium 4.8 Chloride 104 Carbon Dioxide 29 Anion Gap 6 BUN 10 Creatinine 0.56 Est GFR ( Amer) > 60 Glucose 128 H Calcium 9.1 Total Bilirubin 0.2 AST 21 Alkaline Phosphatase 79 Total Protein 5.9 L Albumin 3.5 Blood Type A POSITIVE Antibody Screen NEGATIVE 06/17/19 06/17/19 03:49 03:49 WBC 4.6 RBC 4.19 Hgb 11.6 L Hct 35.6 L MCV 85 MCH 27.8 MCHC 32.7 RDW 14.8 H Plt Count 217 Seg Neutrophils % 87.3 H Sodium 138.0 Potassium 4.1 Chloride 103 Carbon Dioxide 26 Anion Gap 9 BUN 10 Creatinine 0.47 L Est GFR ( Amer) > 60 Glucose 281 H Calcium 9.0 Total Bilirubin AST Alkaline Phosphatase Total Protein Albumin Blood Type Antibody Screen Impressions: Soft Tissue Neck CT 06/16/19 13:21 IMPRESSION: 1. No airway obstruction or abscess. Findings as above. Assessment and Plan - Diagnosis (1) Angioedema Qualifiers: Encounter type: initial encounter Qualified Code(s): T78.3XXA - Angioneurotic edema, initial encounter Is this a current diagnosis for this admission?: Yes Plan: No clear source, received TXA, Solu-Medrol, Pepcid, Benadryl, epinephrine as needed (2) Bipolar affective Is this a current diagnosis for this admission?: Yes Plan: Follow-up medication reconciliation. Supportive care (3) Uvular edema Is this a current diagnosis for this admission?: Yes Plan: Possible angioedema, Solu-Medrol, Pepcid, Benadryl, epinephrine as needed (4) Diabetes Is this a current diagnosis for this admission?: Yes Plan: Trial clear liquids, Humalog sliding scale q. AC - Time Time Spent with patient: 25-34 minutes - Inpatient Certification Medical Necessity: Need Close Monitoring Due to Risk of Patient Decompensation
[2019-06-17] MEDS: HEPARIN SOD (PORCINE) 5,000 UNIT/ML 1 ML VIAL SUBCUT SCH ×4 (05:47→21:06)
[2019-06-17] MEDS: METHYLPREDNISOLONE INJ 125 MG/2 ML SDV IV SCH ×3 (05:49→21:14)
[2019-06-17] MEDS: INSULIN LISPRO 100 UNIT/ML 3 ML VIAL SUBCUT SCH ×3 (08:10→16:01)
[2019-06-17] MEDS ORDERED: LEVODOPA PO SCH (10:00)
[2019-06-17] MEDS ORDERED: CARBIDOPA/LEVODOPA 25-100 MG TABLET PO SCH (10:00)
[2019-06-17] MEDS ORDERED: CARBIDOPA PO SCH (10:00)
[2019-06-17] MEDS: FAMOTIDINE INJ/PF 20 MG/2 ML SDV IV SCH ×2 (10:05→21:14)
[2019-06-17] MEDS: CARBIDOPA/LEVODOPA 25-100 MG TABLET PO SCH ×3 (10:05→17:20)
--- NOTE | 2019-06-17 14:03 | PDOC PROGRESS REPORT ---
Subjective Progress Note for:: 06/17/19 Subjective:: This is a 53 year old female with past medical history of Parkinson's disease, diabetes, morbid obesity and bipolar who presented with acute tongue and facial swelling and a sensation of throat tightness after recent increase in her Sinemet. She was admitted for angioedema and was started on steroids and Benadryl. No acute event overnight. Tongue swelling has totally resolved. She says that her facial swelling and tenderness has significantly improved today but still not at her baseline. She says that she does not have the sensation of throat tightness anymore. Denies chest pain or shortness of breath. She is clear breath sounds. Downgrade to telemetry. Reason For Visit: ANGIOEDEMA Physical Exam Vital Signs: Temp Pulse Resp BP Pulse Ox 98.0 F 99 16 148/86 H 93 06/17/19 08:00 06/17/19 08:00 06/17/19 10:00 06/17/19 08:00 06/17/19 10:00 Intake & Output 06/16/19 06/17/19 06/18/19 06:59 06:59 06:59 Intake Total 1692 360 Output Total 600 750 Balance 1092 -390 Weight 249 lb 1.957 oz General appearance: PRESENT: no acute distress, well-developed, well-nourished Head exam: PRESENT: atraumatic, normocephalic Eye exam: PRESENT: conjunctiva pink, EOMI, PERRLA. ABSENT: scleral icterus Ear exam: PRESENT: normal external ear exam Mouth exam: PRESENT: moist, tongue midline Neck exam: ABSENT: carotid bruit, JVD, lymphadenopathy, thyromegaly Respiratory exam: PRESENT: clear to auscultation malena. ABSENT: rales, rhonchi, wheezes Cardiovascular exam: PRESENT: RRR. ABSENT: diastolic murmur, rubs, systolic murmur Pulses: PRESENT: normal dorsalis pedis pul GI/Abdominal exam: PRESENT: normal bowel sounds, soft. ABSENT: distended, guarding, mass, organolmegaly, rebound, tenderness Rectal exam: PRESENT: deferred Extremities exam: PRESENT: full ROM. ABSENT: calf tenderness, clubbing, pedal edema Neurological exam: PRESENT: alert, awake, oriented to person, oriented to place, oriented to time, oriented to situation, CN II-XII grossly intact. ABSENT: motor sensory deficit Results Laboratory Results: 06/17/19 03:49 06/17/19 03:49 06/16/19 06/16/19 06/16/19 13:13 13:13 13:28 WBC 5.2 RBC 4.62 Hgb 13.1 Hct 39.6 MCV 86 MCH 28.3 MCHC 33.0 RDW 14.7 H Plt Count 265 Seg Neutrophils % 56.5 Sodium 139.2 Potassium 4.8 Chloride 104 Carbon Dioxide 29 Anion Gap 6 BUN 10 Creatinine 0.56 Est GFR ( Amer) > 60 Glucose 128 H Calcium 9.1 Total Bilirubin 0.2 AST 21 Alkaline Phosphatase 79 Total Protein 5.9 L Albumin 3.5 Blood Type A POSITIVE Antibody Screen NEGATIVE 06/17/19 06/17/19 03:49 03:49 WBC 4.6 RBC 4.19 Hgb 11.6 L Hct 35.6 L MCV 85 MCH 27.8 MCHC 32.7 RDW 14.8 H Plt Count 217 Seg Neutrophils % 87.3 H Sodium 138.0 Potassium 4.1 Chloride 103 Carbon Dioxide 26 Anion Gap 9 BUN 10 Creatinine 0.47 L Est GFR ( Amer) > 60 Glucose 281 H Calcium 9.0 Total Bilirubin AST Alkaline Phosphatase Total Protein Albumin Blood Type Antibody Screen Impressions: Soft Tissue Neck CT 06/16/19 13:21 IMPRESSION: 1. No airway obstruction or abscess. Findings as above. Assessment and Plan - Diagnosis (1) Angioedema Qualifiers: Encounter type: initial encounter Qualified Code(s): T78.3XXA - Angioneurotic edema, initial encounter Is this a current diagnosis for this admission?: Yes Plan: Resolving. Patient is not on any JEAN CLAUDE inhibitors. She denies any recent new m edications aside from a recent change in the dose of her Sinemet. Decrease steroids. Switch Solu-Medrol from 125 to 40 mg every 8. (2) Parkinsons disease Is this a current diagnosis for this admission?: Yes Plan: We will resume Sinemet at her previous lower dosing and see how she responds. (3) Diabetes mellitus type 2 in obese Is this a current diagnosis for this admission?: Yes Plan: Sliding scale for now. Will be reducing steroids as well so anticipate better sugar control the next few hours. (4) Bipolar affective Is this a current diagnosis for this admission?: Yes Plan: Resume home meds. - Time Time Spent with patient: 25-34 minutes
[2019-06-17] MEDS ORDERED: LOPERAMIDE HCL 2 MG CAPSULE PO ONE (21:00)
[2019-06-18] MEDS: IPRATROPIUM/ALBUTEROL 0.5-2.5 MG/3 ML AMPUL NEB SCH ×2 (00:22→08:09)
[2019-06-18] MEDS: HEPARIN SOD (PORCINE) 5,000 UNIT/ML 1 ML VIAL SUBCUT SCH (05:14)
[2019-06-18] MEDS: METHYLPREDNISOLONE INJ 125 MG/2 ML SDV IV SCH (05:18)
[2019-06-18] MEDS: INSULIN LISPRO 100 UNIT/ML 3 ML VIAL SUBCUT SCH (07:29)
--- NOTE | 2019-06-18 08:04 | Progress Note Acknowledgement ---
Progress Note Acknowledgement Progess Note Acknowledgement: I, the undersigned member of the medical staff with appropriate privileges and with supervisory authority over [Radhames Hahn], a dependent practice allied health professional, acknowledge that I have reviewed the progress notes entered on this patient, and in my professional judgment believe that the assessment made and/or any care evidenced was appropriate
--- NOTE | 2019-06-18 08:07 | PDOC DISCHARGE SUMMARY ---
General - Admit/Disc Date/PCP Admission Date/Primary Care Provider: 06/16/19 20:06 ILEANA ROBERTS MD Discharge Date: 06/18/19 - Additional Information Resuscitation Status: Full Code Discharge Diet: As Tolerated Discharge Activity: Activity As Tolerated Home Medications: Trazodone HCl 150 mg PO QHS 12/21/15 Aspirin [Aspirin EC] 81 mg PO DAILY 08/02/17 Hydrocodone Bit/Acetaminophen [Hydrocodon-Acetaminophen 5-325] 1 tab PO Q8HP PRN 06/16/19 Bupropion HCl [Wellbutrin Sr 100 mg Tablet] 100 mg PO DAILY 06/17/19 Carbidopa/Levodopa [Sinemet 25-100 mg Tablet] 1.5 tab PO TID 06/17/19 Gabapentin [Neurontin 300 mg Capsule] 300 mg PO Q12 06/17/19 Melatonin [Melatonin 5 mg Tablet] 5 mg PO QHS 06/17/19 Multivitamin [One-A-Day Essential] 1 tab PO DAILY 06/17/19 Nateglinide [Starlix 60 Mg Tablet] 60 mg PO WLUNCH 06/17/19 Nateglinide [Starlix 60 Mg Tablet] 60 mg PO WSUPPER 06/17/19 Pantoprazole Sodium 40 mg PO QAM 06/17/19 Polyethylene Glycol 3350 [Miralax Powder 17 gm/Packet] 17 gm PO Q2D 06/17/19 Potassium Gluconate [Potassium] 99 mg PO DAILY 06/17/19 Pravastatin Sodium 40 mg PO QHS 06/17/19 Sertraline HCl [Zoloft] 100 mg PO DAILY 06/17/19 Sucralfate [Carafate 1 gm Tablet] 1 gm PO ACHS 06/17/19 History of Present Illness Patient complains of: None this a.m. History of Present Illness: OLY SOTELO is a 53 year old female who presented to the ER with angioedema. Hospital Course Hospital Course: Patient is a 52-year-old female presented to the ER with a past medical history of Parkinson disease, type 2 diabetes most, morbid obesity and bipolar affective disorder. She presented and complained of 12 hours of swelling of her tongue and a change in quality of her voice prompting evaluation. CT of the neck was negative but patient a persistent sensation of throat swelling. She received treatment in the ER and was referred for hospitalist admission. Over the course of her admission patient improved patient return home. This angioedema was thought to be brought on by a new dosing of her Parkinson's medications. I have educated patient to hold all Parkinson's medication until she follows up with her primary care practitioner in 1 week. Patient is in agreement with this plan of care. Physical Exam Vital Signs: Temp Pulse Resp BP Pulse Ox 98.5 F 70 18 155/76 H 99 06/17/19 23:53 06/18/19 07:00 06/18/19 00:22 06/17/19 23:53 06/18/19 00:22 Intake & Output 06/17/19 06/18/19 06/19/19 06:59 06:59 06:59 Intake Total 1692 1960 Output Total 600 1050 Balance 1092 910 Weight 113 kg 112.7 kg General appearance: PRESENT: no acute distress, well-developed, well-nourished Neck exam: ABSENT: carotid bruit, JVD, lymphadenopathy, thyromegaly Respiratory exam: PRESENT: clear to auscultation malena. ABSENT: rales, rhonchi, wheezes Cardiovascular exam: PRESENT: RRR. ABSENT: diastolic murmur, rubs, systolic murmur Pulses: PRESENT: normal dorsalis pedis pul Vascular exam: PRESENT: normal capillary refill GI/Abdominal exam: PRESENT: normal bowel sounds, soft. ABSENT: distended, guarding, mass, organolmegaly, rebound, tenderness Extremities exam: PRESENT: full ROM. ABSENT: calf tenderness, clubbing, pedal edema Neurological exam: PRESENT: alert, awake, oriented to person, oriented to place, oriented to time, oriented to situation, CN II-XII grossly intact. ABSENT: motor sensory deficit Psychiatric exam: PRESENT: appropriate affect, normal mood. ABSENT: homicidal ideation, suicidal ideation Skin exam: PRESENT: dry, intact, warm. ABSENT: cyanosis, rash Results Laboratory Results: 06/17/19 03:49 06/17/19 03:49 Impressions: Soft Tissue Neck CT 06/16/19 13:21 IMPRESSION: 1. No airway obstruction or abscess. Findings as above. Qualifiers - * PATIENT BEING DISCHARGED WITH ANY OF THE FOLLOWING DIAGNOSIS: No Acute Heart Failure - Is this a Heart Failure Patient?: No Plan Time Spent: Greater than 30 Minutes
[2019-06-18 08:30] VITALS: BP 154/92
[2019-06-18] MEDS: CARBIDOPA/LEVODOPA 25-100 MG TABLET PO SCH (09:53)
[2019-06-18] MEDS: FAMOTIDINE INJ/PF 20 MG/2 ML SDV IV SCH (09:53)
== END 2019-06-18 09:55 | disposition home or self-care (01) ==
LOC: ER 13:01 → EH 20:06 → ICU 21:45 → 4N 06-17 13:54
PROVIDERS: ADMIT Internal Medicine; ATTEND Internal Medicine
DX: T78.3XXA Angioneurotic edema, initial encounter (principal); F31.9 Bipolar disorder, unspecified; E11.65 Type 2 diabetes mellitus with hyperglycemia; G20 Parkinson's disease; E66.01 Morbid (severe) obesity due to excess calories; R60.0 Localized edema; Z79.899 Other long term (current) drug therapy; Z79.82 Long term (current) use of aspirin; Z79.84 Long term (current) use of oral hypoglycemic drugs; Z88.6 Allergy status to analgesic agent; Z88.4 Allergy status to anesthetic agent; Z88.3 Allergy status to other anti-infective agents
CPT/HCPCS: 94640 ×3; 99285; 96374; 86900; 86901; 36415 ×2; 36430; 86850; 82962 ×2; 85025 ×2; 85610; 85730; 80048; 80053; 70491; G0378 ×4; P9017; J3490 ×4; J1200; J1815 ×2; J2930 ×3; J7030 ×2; S0028 ×2; J7620 ×2

== ENCOUNTER 2020-08-02 21:26 | Inpatient (IN) | payer MEDICAID, OTHER ==
[2020-08-02] MEDS ORDERED: IPRATROPIUM/ALBUTEROL 0.5-2.5 MG/3 ML AMPUL NEB ONE (21:56)
--- NOTE | 2020-08-02 22:00 | ER Document Report ---
ED Medical Screen (RME) - General Chief Complaint: Shortness Of Breath Stated Complaint: COUGH,FEVER,SORE THROAT Time Seen by Provider: 08/02/20 21:39 Primary Care Provider: ILEANA ROBERTS MD [Primary Care Provider] - Follow up as needed Notes: Patient is a 54-year-old female presents emergency department with a chief complaint of a cough and shortness of breath. Patient states that she woke up with a cough this evening. She went to go take a drink of diet Sunkist soda and felt like it got, "stuck." Denies choking. She was brought in by EMS and when EMS arrived, her oxygen saturation was 88 to 90%. Patient has history of asthma with chronic bronchitis. Exam: Slightly diminished breath sounds. I have greeted and performed a rapid initial assessment of this patient. A comprehensive ED assessment and evaluation of the patient, analysis of test results and completion of medical decision making process will be conducted by an additional ED providers. TRAVEL OUTSIDE OF THE [place] IN LAST 30 DAYS: No - Related Data Allergies/Adverse Reactions: clarithromycin [From Biaxin] Allergy (Severe, Verified 08/02/17 17:31) Anaphylaxis levofloxacin [From Levaquin] Allergy (Severe, Verified 08/02/17 17:31) Anaphylaxis phenazopyridine HCl [From Pyridium] Adverse Reaction (Intermediate, Verified 08/02/17 17:31) Hallucinations Past Medical History - Past Medical History Cardiac Medical History: Reports: Hx Hypertension Denies: Hx Atrial Fibrillation, Hx Congestive Heart Failure, Hx Coronary Artery Disease, Hx Heart Attack, Hx Hypercholesterolemia, Hx Peripheral Vascular Disease, Hx Pulmonary Embolism, Hx Heart Murmur Pulmonary Medical History: Reports: Hx Asthma, Hx COPD Denies: Hx Bronchitis, Hx Pneumonia, Hx Respiratory Failure, Hx Sleep Apnea, Hx Tuberculosis Neurological Medical History: Reports: Hx Migraine. Denies: Hx Cerebrovascular Accident, Hx Seizures, Hx Parkinson's Disease Endocrine Medical History: Reports: Hx Diabetes Mellitus Type 2. Denies: Hx Diabetes Mellitus Type 1 Renal/ Medical History: Denies: Hx Peritoneal Dialysis Malignancy Medical History: Denies: Hx Lung Cancer Musculoskeltal Medical History: Denies Hx Arthritis, Denies Hx Fibromyalgia, Denies Hx Multiple Sclerosis, Denies Hx Muscular Dystrophy, Reports Hx Muscle Weakness, Reports Hx Musculoskeletal Deformity, Reports Hx Musculoskeletal Trauma Skin Medical History: Reports Hx Psoriasis Psychiatric Medical History: Reports: Hx Depression, Hx Schizophrenia - valdo izoaffective d/o Denies: Hx Dementia Traumatic Medical History: Denies: Hx Fractures Past Surgical History: Reports: Hx Cholecystectomy, Hx Nose Surgery, Hx Orthopedic Surgery - Surgery x2 Right knee, Hx Tubal Ligation. Denies: Hx Pacemaker - Immunizations Immunizations up to date: Yes Hx Diphtheria, Pertussis, Tetanus Vaccination: Yes Physical Exam - Vital signs Vitals: Resp 12 08/02/20 21:32 Course - Vital Signs Vital signs: Temp Pulse Resp BP Pulse Ox 25 H 155/87 H 90 L 08/02/20 21:35 08/02/20 21:35 08/02/20 21:35 Doctor's Discharge - Discharge Referrals: ILEANA ROBERTS MD [Primary Care Provider] - Follow up as needed
[2020-08-02 22:18] LABS: ABSOLUTE BASOPHILS # (AUTO) 0.1 10^3/uL (0.0-0.2); ABSOLUTE EOSINOPHILS # (AUTO) 0.2 10^3/uL (0.0-0.6); ABSOLUTE LYMPHOCYTES (AUTO) 2.6 10^3/uL (0.5-4.7); ABSOLUTE MONOCYTES (AUTO) 0.4 10^3/uL (0.1-1.4); ABSOLUTE NEUT (AUTO) 3.3 10^3/uL (1.7-8.2); BASOPHILS % (AUTO) 0.9 % (0-2); HEMATOCRIT 40.1 % (36.0-47.0); HEMOGLOBIN 12.9 g/dL (12.0-15.5); LYMPHOCYTES % (AUTO) 39.8 % (13-45); MEAN CORPUSCULAR HEMOGLOBIN 28.2 pg (27.0-33.4); MEAN CORPUSCULAR HGB CONC 32.3 g/dL (32.0-36.0); MEAN CORPUSCULAR VOLUME 87 fl (80-97); MONOCYTES % (AUTO) 6.2 % (3-13); PLATELET COUNT 260 10^3/uL (150-450); RED BLOOD COUNT 4.59 10^6/uL (3.72-5.28); RED CELL DISTRIBUTION WIDTH 14.1 % (11.5-14.0); SEGMENTED NEUTROPHILS % (AUTO) 50.1 % (42-78); TOTAL CELLS COUNTED % (AUTO) 100 %; WHITE BLOOD COUNT 6.5 10^3/uL (4.0-10.5)
[2020-08-02 22:36] LABS: ALBUMIN 3.8 g/dL (3.5-5.0); ALKALINE PHOSPHATASE 87 U/L (38-126); ANION GAP 8 (5-19); ASPARTATE AMINO TRANSFERASE 24 U/L (14-36); BILIRUBIN,DIRECT 0.3 mg/dL (0.0-0.4); BILIRUBIN,TOTAL 0.3 mg/dL (0.2-1.3); BLOOD UREA NITROGEN 11 mg/dL (7-20); CALCIUM 9.2 mg/dL (8.4-10.2); CARBON DIOXIDE 27 mmol/L (22-30); CHLORIDE 101 mmol/L (98-107); CREATINE KINASE 95 U/L (30-135); GLUCOSE 324 mg/dL (75-110); POTASSIUM 4.2 mmol/L (3.6-5.0); TOTAL PROTEIN 6.8 g/dL (6.3-8.2)
--- NOTE | 2020-08-02 22:36 | ER Document Report ---
ED General - General Chief Complaint: Breathing Difficulty Stated Complaint: COUGH,FEVER,SORE THROAT Time Seen by Provider: 08/02/20 21:39 TRAVEL OUTSIDE OF THE [place] IN LAST 30 DAYS: No - HPI Notes: Patient is a 54 y/o female with a hx of DM II, sleep apnea and pacemaker who presents for shortness of breath that began around 8:30PM this evening. Patient states she woke up short of breath with chest tightness that starts under the left breast and radiates to her left side. She tried to drink some diet sunkist but "choked on it" which made her shortness of breath worse. She reports fatigue but denies fever, cough, nausea, vomiting, abdominal pain, and diarrhea. Patient has chronic constipation which she takes Miralax for. Patient uses CPAP at night. She states she was just recently diagnosed with mild COPD. - Related Data Allergies/Adverse Reactions: clarithromycin [From Biaxin] Allergy (Severe, Verified 08/02/17 17:31) Anaphylaxis levofloxacin [From Levaquin] Allergy (Severe, Verified 08/02/17 17:31) Anaphylaxis phenazopyridine HCl [From Pyridium] Adverse Reaction (Intermediate, Verified 08/02/17 17:31) Hallucinations Past Medical History - General Information source: Patient - Social History Smoking Status: Never Smoker Frequency of alcohol use: None Drug Abuse: None Family History: Hypertension Patient has homicidal ideation: No - Past Medical History Cardiac Medical History: Reports: Hx Hypertension Denies: Hx Atrial Fibrillation, Hx Congestive Heart Failure, Hx Coronary Artery Disease, Hx Heart Attack, Hx Hypercholesterolemia, Hx Peripheral Vascular Disease, Hx Pulmonary Embolism, Hx Heart Murmur Pulmonary Medical History: Reports: Hx Asthma, Hx COPD Denies: Hx Bronchitis, Hx Pneumonia, Hx Respiratory Failure, Hx Sleep Apnea, Hx Tuberculosis Neurological Medical History: Reports: Hx Migraine. Denies: Hx Cerebrovascular Accident, Hx Seizures, Hx Parkinson's Disease Endocrine Medical History: Reports: Hx Diabetes Mellitus Type 2. Denies: Hx Diabetes Mellitus Type 1 Renal/ Medical History: Denies: Hx Peritoneal Dialysis Malignancy Medical History: Denies: Hx Lung Cancer Musculoskeletal Medical History: Denies Hx Arthritis, Denies Hx Fibromyalgia, Denies Hx Multiple Sclerosis, Denies Hx Muscular Dystrophy, Reports Hx Muscle Weakness, Reports Hx Musculoskeletal Deformity, Reports Hx Musculoskeletal Trauma Skin Medical History: Reports Hx Psoriasis Psychiatric Medical History: Reports: Hx Depression, Hx Schizophrenia - schizoaffective d/o Denies: Hx Dementia Traumatic Medical History: Denies: Hx Fractures Past Surgical History: Reports: Hx Cholecystectomy, Hx Nose Surgery, Hx Orthopedic Surgery - Surgery x2 Right knee, Hx Tubal Ligation. Denies: Hx Pacemaker - Immunizations Immunizations up to date: Yes Hx Diphtheria, Pertussis, Tetanus Vaccination: Yes Review of Systems - Review of Systems Constitutional: See HPI EENT: No symptoms reported Cardiovascular: See HPI Respiratory: See HPI Gastrointestinal: No symptoms reported Genitourinary: No symptoms reported Female Genitourinary: No symptoms reported Musculoskeletal: No symptoms reported Skin: No symptoms reported Hematologic/Lymphatic: No symptoms reported Neurological/Psychological: No symptoms reported Physical Exam - Vital signs Vitals: Resp 12 08/02/20 21:32 Temp Resp BP Pulse Ox 08/03/20 01:58 98.3 F 08/03/20 01:01 16 122/80 95 08/03/20 01:00 15 94 08/03/20 00:01 14 126/72 H 94 08/03/20 00:00 13 95 08/02/20 23:05 20 141/73 H 93 08/02/20 23:04 31 H 95 08/02/20 23:00 19 87 L 08/02/20 22:24 89 L 08/02/20 22:23 18 94 08/02/20 22:22 98 F 08/02/20 22:04 18 116/72 84 L 08/02/20 22:03 17 87 L 08/02/20 22:00 22 H 85 L 08/02/20 21:35 25 H 155/87 H 90 L 08/02/20 21:34 26 H 08/02/20 21:32 12 - Notes Notes: PHYSICAL EXAMINATION: VITALS: Vitals reviewed and patient hypoxic. GENERAL: Obese, female laying in bed who appears to be sleepy. She is in no acute distress. HEAD: Atraumatic, normocephalic. EYES: Pupils equal, round, and reactive to light, extraocular movements intact, sclera anicteric, conjunctiva are normal. ENT: Nares patent. Moist mucous membranes. Oropharynx clear without exudates. NECK: Normal range of motion, supple without lymphadenopathy. LUNGS: Breath sounds clear to auscultation bilaterally and equal. No wheezes rales or rhonchi. HEART: Regular, rate, and rhythm without murmurs. ABDOMEN: Soft, nontender, normoactive bowel sounds. No guarding, no rebound. No masses appreciated. EXTREMITIES: Normal range of motion. Edema to the lower extremities bilaterally. No cyanosis. NEUROLOGICAL: No focal neurological deficits. Moves all extremities spon taneously and on command. PSYCH: Normal mood, normal affect. SKIN: Warm, Dry, normal turgor, no rashes or lesions noted. Course - Re-evaluation Re-evalutation: Patient is a 54 y/o female with a hx of DM II, sleep apnea and pacemaker who presents with SOB and chest tightness. Patient is hypoxic with O2 sat of 85- 90%. Patient is afebrile. On exam, lungs are clear to auscultation bilaterally with BLE edema. Chest XR shows bibasilar airspace opacities with trace effusions. These may reflect atelectasis or infection. WBC unremarkable and within normal limits with a normal WBC of 6.5. Sodium mildly low at 136.4 and glucose elevated 324. Sodium factitiously low due to hyperglycemia and corrected to be 139.6. Initial and repeat 3-hr Troponin negative. pro-BNP normal at 81. Initially ordered for the patient to be ambulated with pulse ox but RN was concerned that she would not tolerate ambulation. We opted to remove her O2 and evaluate her pulse ox. Patient immediately desaturated to 85% on RA. Patient continues to remain on 2L of oxygen via nasal canula. Due to her hypoxia and bibasilar opacities I am concerned for pneumonia. I spoke with Dr. Mandujano, hospitalist, concerning this patient and agrees to accept the patient. Patient will be admitted to the [facility] COVID unit for inpatient admission. I discussed this plan with the patient and she understands and is in agreement. - Vital Signs Vital signs: Temp Pulse Resp BP Pulse Ox 98.3 F 18 110/50 L 96 08/03/20 01:58 08/03/20 04:01 08/03/20 04:01 08/03/20 04:01 - Laboratory Result Diagrams: 08/02/20 21:52 08/02/20 21:52 Laboratory results interpreted by me: 08/02/20 08/02/20 08/02/20 21:52 21:52 22:56 RDW 14.1 H Carbonic Acid 1.71 H ABG pH 7.31 L ABG pCO2 56.7 H ABG pO2 56.4 L ABG HCO3 27.8 H ABG Total CO2 29.5 H ABG O2 Saturation 86.1 L Sodium 136.4 L Glucose 324 H - Diagnostic Test Radiology reviewed: Image reviewed, Reports reviewed Radiology results interpreted by me: Chest X-ray Impression: There are bibasilar airspace opacities with trace effusions. These may reflect atelectasis or infection. - EKG Interpretation by Me Additional EKG results interpreted by me: Sinus tachycardia with a rate of 102. QTc 501 which is borderline prolonged. Normal axis. Nonspecific T wave abnormalities in diffuse leads but unchanged from prior EKG on 05/16/2020. No T wave inversions or ST segment changes in consecutive leads. Discharge - Discharge Clinical Impression: Shortness of breath, Hypoxia Pneumonia Qualifiers: Pneumonia type: due to unspecified organism Laterality: bilateral Lung location: lower lobe of lung Qualified Code(s): J18.9 - Pneumonia, unspecified organism Condition: Stable Disposition: ADMITTED INPATIENT Admitting Provider: Nazia (Hospitalist) Unit Admitted: [facility]
[2020-08-02 22:48] LABS: CREATINE KINASE MB 0.95 ng/mL (<4.55)
[2020-08-02 22:49] LABS: TROPONIN I < 0.012 ng/mL
--- NOTE | 2020-08-02 23:00 | RADIOLOGY REPORT (SQ) ---
AP Portable chest: 08/02/2020 9:58 PM CDT History: 54-year old patient with dyspnea . Comparison: Chest radiograph performed 04/17/2014. Findings: The cardiomediastinal silhouette is enlarged. No pneumothorax is seen. The lung volumes are low. There are bibasilar airspace opacities. A dual-lead left-sided pacemaker is seen. There is blunting of both costophrenic angles, suggestive of trace effusions. Impression: There are bibasilar space opacities with trace effusions. These may reflect atelectasis or infection.
[2020-08-03 00:05] LABS: ARTERIAL BLOOD BASE EXCESS 0.4 mmol/L; ARTERIAL BLOOD FIO2 ROOM AIR; ARTERIAL BLOOD H2CO3 1.71 mmol/L (1.05-1.35); ARTERIAL BLOOD HCO3 27.8 mmol/L (20-24); ARTERIAL BLOOD O2 SATURATION 86.1 % (94-98); ARTERIAL BLOOD PCO2 56.7 mmHg (35-45); ARTERIAL BLOOD PH 7.31 (7.35-7.45); ARTERIAL BLOOD PO2 56.4 mmHg (80-100); ARTERIAL BLOOD TOTAL CO2 29.5 mmol/L (21-25)
--- NOTE | 2020-08-03 00:20 | EKG REPORT ---
SEVERITY:- ABNORMAL ECG - SINUS TACHYCARDIA NONSPECIFIC T ABNORMALITIES, DIFFUSE LEADS BORDERLINE PROLONGED QT INTERVAL : Confirmed by: Carmel Hawthorne 03-Aug-2020 00:19:43
[2020-08-03] MEDS ORDERED: DEXAMETHASONE SOD PHOS INJ 10 MG/1 ML VIAL IM ONE (03:30)
[2020-08-03] MEDS ORDERED: DOXYCYCLINE HYCLATE INJ 100 MG VIAL IV ONE (03:33)
[2020-08-03] MEDS ORDERED: CEFTRIAXONE 1 GM/D5W RTU 1 GM/50 ML RTUPB IV ONE (03:33)
[2020-08-03] MEDS ORDERED: GUAIFENESIN SYRP 200 MG/10 ML UDC PO PRN (04:05)
[2020-08-03] MEDS ORDERED: ACETAMINOPHEN 325 MG TABLET PO PRN (04:05)
[2020-08-03] MEDS ORDERED: INSULIN REG, HUMAN 100 UNIT/ML 3 ML VIAL (PYX) SUBCUT PRN (04:10)
[2020-08-03] MEDS ORDERED: MAGNESIUM HYDROXIDE SUSP 30 ML UDCUP PO PRN (04:10)
[2020-08-03] MEDS ORDERED: MORPHINE SULFATE 10 MG/ML INJ IV PRN (04:10)
[2020-08-03] MEDS ORDERED: LEVALBUTEROL HCL NEB 0.63 MG/3 ML AMPUL NEB PRN (04:10)
[2020-08-03] MEDS ORDERED: LORAZEPAM INJ 2 MG/1 ML VIAL IV PRN (04:10)
[2020-08-03] MEDS ORDERED: MELATONIN 5 MG TABLET PO PRN (04:10)
[2020-08-03] MEDS ORDERED: MAG HYDROX/AL HYDROX/SIMETH SUSP 30 ML UDCUP PO PRN (04:10)
[2020-08-03] MEDS ORDERED: METOPROLOL TARTRATE PF/INJ 5 MG/5 ML SDV IV PRN (04:10)
[2020-08-03] MEDS ORDERED: GLUCAGON,HUMAN RECOMB 1 MG INJ IM PRN (04:11)
[2020-08-03] MEDS ORDERED: DEXTROSE 50%-WATER 25 GM/50 ML DISP.SYRIN IV PRN ×2 (04:11)
[2020-08-03] MEDS ORDERED: DEXTROSE 40% GEL 15 GM TUBE PO PRN ×2 (04:11)
[2020-08-03] MEDS ORDERED: AZITHROMYCIN INJ 500 MG VIAL IV ONE (05:44)
--- NOTE | 2020-08-03 06:10 | PDOC H&P ---
History of Present Illness Admission Date/PCP: 08/03/2020 03:44 EDEN MARIE MD Patient complains of: Dyspnea History of Present Illness: OLY SOTELO is a 54 year old female who presented to the emergency room with acute dyspnea. She admits waking from sleep at 8:30 PM with severe shortness of breath and a moderately intense sensation of tightness in her left lower anterior chest radiating to her left lower lateral chest. She any associated or accompanying signs and symptoms. She tried drinking some fluids but this caused choking and made her feel worse. She denies prior similar episodes. She admits a history of obstructive sleep apnea and a recent diagnosis of COPD. She uses CPAP every night. She has not identified any additional aggravating or ameliorating factors for her acute dyspnea. In the emergency room she was found to have hypoxia and bibasilar groundglass opacities on her chest x-ray. She required supplemental oxygen to maintain an adequate O2 saturation. She was started on IV antibiotic therapy for community-acquired pneumonia and given Decadron 10 mg IV x1 in the ER. COVID-19 testing was performed in the emergency room. Patient was subsequently admitted to the hospital for further evaluation and treatment. Past Medical History Cardiac Medical History: Reports: Hypertension Denies: Atrial Fibrillation, Congestive Heart Failure, Coronary Artery Disease, Myocardial Infarction, Hyperlipidema, Peripheral Vascular Disease, Pulmonary Embolism, Heart Murmur Pulmonary Medical History: Reports: Asthma, Chronic Obstructive Pulmonary Disease (COPD), Sleep Apnea Denies: Bronchitis, Pneumonia, Respiratory Failure, Tuberculosis EENT Medical History: Denies: Cataracts, Ears - Hearing aids Neurological Medical History: Reports: Migraine Denies: Hemorrhagic CVA, Seizures Endocrine Medical History: Reports: Diabetes Mellitus Type 2, Obesity Denies: Diabetes Mellitus Type 1, Hyperthyroidism, Hypothyroidism Renal/ Medical History: Denies: Chronic Kidney Disease, Nephrolithiasis Malignancy Medical History: Reports: None Denies: Lung Cancer GI Medical History: Denies: Cirrhosis, Hepatitis, Peptic Ulcer Disease Musculoskeltal Medical History: Denies: Arthritis, Fibromyalgia Skin Medical History: Reports: Psoriasis Denies: Eczema Psychiatric Medical History: Reports: Depression Denies: Alcohol Dependency, Substance Abuse, Tobacco Dependency Traumatic Medical History: Reports: None Hematology: Denies: Anemia, Bleeding Tendencies Infectious Medical History: Reports: None Past Surgical History Past Surgical History: Reports: Cholecystectomy, Orthopedic Surgery - Surgery x2 Right knee, Tubal Ligation Social History Information Source: Patient Lives with: Family, Parents Smoking Status: Never Smoker Electronic Cigarette use?: No Frequency of Alcohol Use: None Hx Recreational Drug Use: No Drugs: None Hx Prescription Drug Abuse: No - Advance Directive Resuscitation Status: Full Code Surrogate healthcare decision maker:: Frantz Sotelo Family History Family History: Hypertension Parental Family History Reviewed: Yes Children Family History Reviewed: No Sibling(s) Family History Reviewed.: No Medication/Allergy Home Medications: Trazodone HCl 300 mg PO QHS 12/21/15 Aspirin [Aspirin EC] 81 mg PO DAILY 08/02/17 Bupropion HCl [Wellbutrin Sr 100 mg Tablet] 100 mg PO DAILY 06/17/19 Gabapentin [Neurontin 300 mg Capsule] 300 mg PO TID 06/17/19 Melatonin [Melatonin 5 mg Tablet] 10 mg PO QHS 06/17/19 Nateglinide [Starlix 60 Mg Tablet] 60 mg PO WSUPPER 06/17/19 Pantoprazole Sodium 40 mg PO QAM 06/17/19 Pravastatin Sodium 40 mg PO QHS 06/17/19 Sertraline HCl [Zoloft] 50 mg PO DAILY 06/17/19 Albuterol Sulfate [Proair HFA Inhalation Aerosol 8.5 gm MDI] 2 puff IN PRN PRN 05/16/20 Ascorbic Acid [Vitamin C 500 mg Tablet] 1 tab PO QAM 05/16/20 Calcium Carbonate/Vitamin D3 [Calcium 600 + Vit D 400 Softgl] 1 tab PO DAILY 05/16/20 Nateglinide [Starlix] 60 mg PO 05/16/20 Allergies/Adverse Reactions: clarithromycin [From Biaxin] Allergy (Severe, Verified 08/02/17 17:31) Anaphylaxis levofloxacin [From Levaquin] Allergy (Severe, Verified 08/02/17 17:31) Anaphylaxis phenazopyridine HCl [From Pyridium] Adverse Reaction (Intermediate, Verified 08/02/17 17:31) Hallucinations Review of Systems Constitutional: ABSENT: chills, fever(s) Eyes: ABSENT: visual disturbances, other - Eye pain Ears: ABSENT: hearing changes, other - Ear pain Nose, Mouth, and Throat: ABSENT: headache(s), sore throat Cardiovascular: PRESENT: as per HPI, chest pain. ABSENT: palpitations Respiratory: PRESENT: as per HPI, dyspnea. ABSENT: cough Gastrointestinal: ABSENT: abdominal pain, constipation, diarrhea, nausea, vomiting Genitourinary: ABSENT: dysuria, hematuria Musculoskeletal: ABSENT: back pain, joint swelling Integumentary: ABSENT: pruritus, rash Neurological: ABSENT: confusion, convulsions, focal weakness, memory loss, syncope Psychiatric: ABSENT: anxiety, depression Endocrine: ABSENT: cold intolerance, heat intolerance Hematologic/Lymphatic: ABSENT: easy bleeding, easy bruising Allergic/Immunologic: ABSENT: seasonal rhinorrhea Physical Exam Vital Signs: Temp Pulse Resp BP Pulse Ox 98.3 F 16 122/80 95 08/03/20 01:58 08/03/20 01:01 08/03/20 01:01 08/03/20 01:01 Intake & Output 08/01/20 08/02/20 08/03/20 23:59 23:59 23:59 Weight 117.934 kg General appearance: PRESENT: no acute distress, cooperative, morbidly obese, other - On supplemental oxygen at time my exam Head exam: PRESENT: atraumatic, normocephalic Eye exam: PRESENT: conjunctiva pink. ABSENT: conjunctival injection, scleral icterus Ear exam: PRESENT: normal external ear exam. ABSENT: bleeding, drainage Mouth exam: PRESENT: dry mucosa, neck supple Neck exam: ABSENT: thyromegaly, tracheal deviation Respiratory exam: PRESENT: decreased breath sounds - Minimally decreased breath sounds throughout all alicea, prolonged expiratory phas - Minimally prolonged expiratory phase throughout all alicea, symmetrical, tachypnea Cardiovascular exam: PRESENT: RRR. ABSENT: clicks, gallop, rubs Pulses: PRESENT: normal radial pulses, normal dorsalis pedis pul Vascular exam: PRESENT: normal capillary refill. ABSENT: pallor GI/Abdominal exam: PRESENT: normal bowel sounds, soft. ABSENT: tenderness Rectal exam: PRESENT: deferred Extremities exam: ABSENT: joint swelling, pedal edema Musculoskeletal exam: ABSENT: deformity, dislocation Neurological exam: PRESENT: alert, oriented to person, oriented to place, oriented to time, oriented to situation, CN II-XII grossly intact. ABSENT: motor sensory deficit Psychiatric exam: PRESENT: appropriate affect, normal mood Skin exam: PRESENT: dry, intact, warm. ABSENT: jaundice, rash, urticaria Results Laboratory Results: 08/02/20 21:52 08/02/20 21:52 08/02/20 08/02/20 08/02/20 21:52 21:52 22:16 WBC 6.5 RBC 4.59 Hgb 12.9 Hct 40.1 MCV 87 MCH 28.2 MCHC 32.3 RDW 14.1 H Plt Count 260 Seg Neutrophils % 50.1 Carbonic Acid Cancelled HCO3/H2CO3 Ratio Cancelled ABG pH Cancelled ABG pCO2 Cancelled ABG pO2 Cancelled ABG HCO3 Cancelled ABG O2 Saturation Cancelled ABG Base Excess Cancelled FiO2 Cancelled Sodium 136.4 L Potassium 4.2 Chloride 101 Carbon Dioxide 27 Anion Gap 8 BUN 11 Creatinine 0.82 Est GFR ( Amer) > 60 Glucose 324 H Calcium 9.2 Total Bilirubin 0.3 AST 24 Alkaline Phosphatase 87 Total Protein 6.8 Albumin 3.8 08/02/20 22:56 WBC RBC Hgb Hct MCV MCH MCHC RDW Plt Count Seg Neutrophils % Carbonic Acid 1.71 H HCO3/H2CO3 Ratio 16:1 ABG pH 7.31 L ABG pCO2 56.7 H ABG pO2 56.4 L ABG HCO3 27.8 H ABG O2 Saturation 86.1 L ABG Base Excess 0.4 FiO2 ROOM AIR Sodium Potassium Chloride Carbon Dioxide Anion Gap BUN Creatinine Est GFR ( Amer) Glucose Calcium Total Bilirubin AST Alkaline Phosphatase Total Protein Albumin 08/02/20 08/02/20 08/02/20 21:52 21:52 21:52 Creatine Kinase 95 CK-MB (CK-2) 0.95 Troponin I < 0.012 NT-Pro-B Natriuret Pep 81 08/03/20 00:56 Creatine Kinase CK-MB (CK-2) Troponin I < 0.012 NT-Pro-B Natriuret Pep Assessment and Plan - Diagnosis (1) Community acquired bilateral lower lobe pneumonia Is this a current diagnosis for this admission?: Yes (2) Acute respiratory failure with hypoxia Is this a current diagnosis for this admission?: Yes (3) Person under investigation for COVID-19 Is this a current diagnosis for this admission?: Yes (4) Obstructive sleep apnea Is this a current diagnosis for this admission?: Yes (5) Diabetes mellitus type 2 in obese Is this a current diagnosis for this admission?: Yes (6) Morbid obesity Is this a current diagnosis for this admission?: Yes - Plan Summary Summary: Patient will be admitted to the [facility] where she will receive routine supportive and symptomatic cares. She will be treated with IV antibiotics utilizing Rocephin and azithromycin daily. Blood cultures are pending. COVID-19 testing is pending. She will be given supplemental oxygen via nasal cannula and/or noninvasive airway pressure support devices as needed to maintain an adequate oxygenation saturation. She will receive Decadron 6 mg IV daily. Before meals and at bedtime Accu-Cheks to be performed with sliding scale insulin given for h yperglycemia and a hypoglycemic protocol in place. She will receive a diabetic diet. Additional laboratory and/or radiographic evaluations will be obtained as needed. She will use Ativan 1 mg IV every 4 hours as needed for anxiety or restlessness. She will use morphine sulfate 2 to 4 mg IV every 2 hours as needed for pain. - Time Time Spent with patient: Less than 15 minutes Medications reviewed and adjusted accordingly: Yes Anticipated Discharge Disposition: Home, Self Care Anticipated Discharge Timeframe: Undetermined - Inpatient Certification Based on my medical assessment, after consideration of the patient's comorbidities, presenting symptoms, or acuity I expect that the services needed warrant INPATIENT care.: Yes I certify that my determination is in accordance with my understanding of Medicare's requirements for reasonable and necessary INPATIENT services [42 CFR 412.3e].: Yes Medical Necessity: Need Close Monitoring Due to Risk of Patient Decompensation, Need For Continuous Telemetry Monitoring, Need for IV Antibiotics, Risk of Complication if Not Cared For in Hospital
[2020-08-03] MEDS: AZITHROMYCIN 500 MG in DEXTROSE 5%-WATER 250 ML IV SCH (06:24)
[2020-08-03] MEDS: HEPARIN SOD (PORCINE) 5,000 UNIT/ML 1 ML VIAL SUBCUT SCH ×3 (06:25→22:32)
[2020-08-03] MEDS: INSULIN REG, HUMAN 100 UNIT/ML 3 ML VIAL (PYX) SUBCUT SCH ×4 (09:15→22:32)
[2020-08-03] MEDS: FAMOTIDINE 20 MG TABLET PO SCH ×2 (09:15→22:32)
[2020-08-03] MEDS: DOCUSATE SODIUM 100 MG CAPSULE PO SCH ×2 (09:15→17:17)
[2020-08-03] MEDS ORDERED: INSULIN REG, HUMAN 100 UNIT/ML 3 ML VIAL (PYX) SUBCUT SCH (11:00)
[2020-08-03] MEDS: CEFTRIAXONE 1 GM/D5W RTU 1 GM/50 ML RTUPB IV SCH (22:32)
[2020-08-04] MEDS: HEPARIN SOD (PORCINE) 5,000 UNIT/ML 1 ML VIAL SUBCUT SCH ×3 (05:12→22:13)
[2020-08-04 05:28] LABS: HEMOGLOBIN 12.7 g/dL (12.0-15.5); MEAN CORPUSCULAR HEMOGLOBIN 28.4 pg (27.0-33.4); MEAN CORPUSCULAR HGB CONC 34.4 g/dL (32.0-36.0); PLATELET COUNT 274 10^3/uL (150-450); RED BLOOD COUNT 4.48 10^6/uL (3.72-5.28); RED CELL DISTRIBUTION WIDTH 14.3 % (11.5-14.0); WHITE BLOOD COUNT 9.1 10^3/uL (4.0-10.5)
[2020-08-04 05:30] LABS: MEAN CORPUSCULAR VOLUME 83 fl (80-97)
[2020-08-04 05:37] LABS: ALBUMIN 3.3 g/dL (3.5-5.0); ALKALINE PHOSPHATASE 75 U/L (38-126); ANION GAP 6 (5-19); ASPARTATE AMINO TRANSFERASE 21 U/L (14-36); BILIRUBIN,DIRECT 0.3 mg/dL (0.0-0.4); BILIRUBIN,TOTAL 0.4 mg/dL (0.2-1.3); BLOOD UREA NITROGEN 18 mg/dL (7-20); CALCIUM 9.4 mg/dL (8.4-10.2); CARBON DIOXIDE 30 mmol/L (22-30); CHLORIDE 101 mmol/L (98-107); GLUCOSE 194 mg/dL (75-110); POTASSIUM 4.5 mmol/L (3.6-5.0); TOTAL PROTEIN 5.6 g/dL (6.3-8.2)
[2020-08-04] MEDS: FAMOTIDINE 20 MG TABLET PO SCH ×2 (09:33→22:12)
[2020-08-04] MEDS: INSULIN REG, HUMAN 100 UNIT/ML 3 ML VIAL (PYX) SUBCUT SCH ×3 (09:33→17:27)
[2020-08-04] MEDS: DOCUSATE SODIUM 100 MG CAPSULE PO SCH ×2 (09:33→17:18)
[2020-08-04] MEDS: AZITHROMYCIN 500 MG in DEXTROSE 5%-WATER 250 ML IV SCH (10:21)
--- NOTE | 2020-08-04 17:50 | PDOC PROGRESS REPORT ---
Subjective Progress Note for:: 08/04/20 Subjective:: The patient is a 54-year-old female with a past medical history of hypertension, asthma, COPD, sleep apnea, migraines, DM 2, and obesity who was admitted 08/03/2020 with Acute respiratory failure with hypoxia and hypercapnia secondary to community-acquired pneumonia. Patient was seen on afternoon rounds. She is found resting in bed, comfortably, on room air. She reports she is feeling slightly better with decreased dyspnea. She does continue to have a productive cough with associated pleuritic chest pain. Has remained afebrile throughout this admission. She denies fever, chills, palpitations, orthopnea, abdominal pain, nausea vomiting and diarrhea. She has no questions or concerns at this time. No concerns per nursing. Reason For Visit: COMMUNITY ACQUIRED BILATERAL LOWER LOBD PNEUMONIA Physical Exam Vital Signs: Temp Pulse Resp BP Pulse Ox 97.7 F 60 16 132/69 H 100 08/04/20 13:51 08/04/20 14:00 08/04/20 13:51 08/04/20 13:51 08/04/20 13:51 Intake & Output 08/03/20 08/04/20 08/05/20 06:59 06:59 06:59 Intake Total 350 2240 Output Total 700 4000 Balance -350 -1760 Weight 120.4 kg 128.4 kg General appearance: PRESENT: no acute distress, cooperative, obese, well- developed, well-nourished Head exam: PRESENT: atraumatic, normocephalic Eye exam: PRESENT: conjunctiva pink, EOMI, PERRLA. ABSENT: scleral icterus Mouth exam: PRESENT: moist, tongue midline Respiratory exam: PRESENT: prolonged expiratory phas, rhonchi, symmetrical, unlabored, wheezes, other - Room air. ABSENT: rales Cardiovascular exam: PRESENT: RRR, +S1, +S2. ABSENT: diastolic murmur, rubs, s ystolic murmur Pulses: PRESENT: normal dorsalis pedis pul Vascular exam: PRESENT: normal capillary refill Extremities exam: PRESENT: full ROM. ABSENT: calf tenderness, clubbing, pedal edema Neurological exam: PRESENT: alert, awake, oriented to person, oriented to place, oriented to time, oriented to situation, CN II-XII grossly intact. ABSENT: motor sensory deficit Psychiatric exam: PRESENT: appropriate affect, normal mood. ABSENT: homicidal ideation, suicidal ideation Skin exam: PRESENT: dry, intact, warm. ABSENT: cyanosis, rash Results Laboratory Results: 08/04/20 04:54 08/04/20 04:54 08/04/20 08/04/20 04:54 04:54 WBC 9.1 RBC 4.48 Hgb 12.7 Hct 37.0 MCV 83 D MCH 28.4 MCHC 34.4 RDW 14.3 H Plt Count 274 Sodium 136.5 L Potassium 4.5 Chloride 101 Carbon Dioxide 30 Anion Gap 6 BUN 18 Creatinine 0.63 Est GFR ( Amer) > 60 Glucose 194 H Calcium 9.4 Total Bilirubin 0.4 AST 21 Alkaline Phosphatase 75 Total Protein 5.6 L Albumin 3.3 L 08/03/20 03:45 Blood Blood Culture (PCR) - Final Staphylococcus Species 08/02/20 08/02/20 08/02/20 21:52 21:52 21:52 Creatine Kinase 95 CK-MB (CK-2) 0.95 Troponin I < 0.012 NT-Pro-B Natriuret Pep 81 08/03/20 00:56 Creatine Kinase CK-MB (CK-2) Troponin I < 0.012 NT-Pro-B Natriuret Pep Assessment and Plan - Diagnosis (1) Community acquired bilateral lower lobe pneumonia Is this a current diagnosis for this admission?: Yes Plan: Blood cultures show coag negative staph in 1 set otherwise negative at 24 hours Sputum cultures pending Covid negative Patient is provided supplemental oxygen as needed maintain saturations greater than 89%. Patient is empirically placed on IV azithromycin and Rocephin; day #2 Scheduled and as needed nebulizer treatments. He is placed on Robitussin as needed. Pulmonary toilet is encouraged with incentive spirometer, flutter valve, early ambulation. (2) COPD (chronic obstructive pulmonary disease) Qualifiers: COPD type: unspecified COPD Qualified Code(s): J44.9 - Chronic obstructive pulmonary disease, unspecified Is this a current diagnosis for this admission?: Yes Plan: Patient has a history of oxygen dependent COPD. Will provide supplemental oxygen and BiPAP as needed to maintain saturations greater than 89%. Start on scheduled and as needed nebulizer treatments. Start prednisone therapy Mucinex twice daily. Robitussin as needed. Pulmonary toilet is encouraged with incentive spirometer, flutter valve, and early ambulation. (3) Acute respiratory failure with hypoxia and hypercapnia Is this a current diagnosis for this admission?: Yes Plan: Secondary to #1 and 2 Evaluation and management as above (4) Obstructive sleep apnea Is this a current diagnosis for this admission?: Yes Plan: BiPAP nightly and as needed; transition to CPAP as respiratory status improves (5) Diabetes mellitus type 2 in obese Is this a current diagnosis for this admission?: Yes Plan: A1c 6.9% Continue decreased Lantus dose; 20 units nightly (takes 50 units at home) Continue AC coverage w/ Humalog Patient is placed on a consistent carb diet. Accu-Cheks before meals and at bedtime with Humalog for sliding scale coverage. Hypoglycemia protocol in place. (6) Person under investigation for COVID-19 Is this a current diagnosis for this admission?: Yes Plan: Ruled out - Time Time Spent with patient: 25-34 minutes Medications reviewed and adjusted accordingly: Yes Anticipated Discharge Disposition: Home, Self Care Anticipated Discharge Timeframe: within 72 hours
[2020-08-04] MEDS: PREDNISONE 20 MG TABLET PO SCH (18:07)
[2020-08-04] MEDS ORDERED: INSULIN GLARGINE,HUM.REC.ANLOG 1,000 UNIT/10 ML VIAL (PYX) SUBCUT ONE ×2 (19:30→22:05)
[2020-08-04] MEDS: IPRATROPIUM/ALBUTEROL 0.5-2.5 MG/3 ML AMPUL NEB SCH (20:25)
[2020-08-04] MEDS ORDERED: (PENDING PHARMACY ID) (Pravastatin Sodium [Pravastatin Sodium] 40 MG) PO SCH (22:00)
[2020-08-04] MEDS ORDERED: (PENDING PHARMACY ID) (Trazodone Hcl [Trazodone Hcl] 300 MG) PO SCH (22:00)
[2020-08-04] MEDS: GABAPENTIN 300 MG CAPSULE PO SCH (22:12)
[2020-08-04] MEDS: ATORVASTATIN CALCIUM 10 MG TABLET PO SCH (22:13)
[2020-08-04] MEDS: GUAIFENESIN 600 MG TABLET.SA PO SCH (22:13)
[2020-08-04] MEDS: TRAZODONE HCL 50 MG TABLET PO SCH (22:13)
[2020-08-04] MEDS: INSULIN LISPRO 100 UNIT/ML 3 ML VIAL SUBCUT SCH (22:14)
[2020-08-04] MEDS: CEFTRIAXONE 1 GM/D5W RTU 1 GM/50 ML RTUPB IV SCH (23:51)
[2020-08-05] MEDS: HEPARIN SOD (PORCINE) 5,000 UNIT/ML 1 ML VIAL SUBCUT SCH ×3 (06:09→21:48)
[2020-08-05] MEDS: GABAPENTIN 300 MG CAPSULE PO SCH ×3 (06:09→21:47)
[2020-08-05] MEDS ORDERED: (PENDING PHARMACY ID) (Vilazodone Hcl [Viibryd] 20 MG) PO SCH (08:00)
[2020-08-05] MEDS: IPRATROPIUM/ALBUTEROL 0.5-2.5 MG/3 ML AMPUL NEB SCH ×2 (08:50→20:00)
[2020-08-05] MEDS: FAMOTIDINE 20 MG TABLET PO SCH ×2 (09:14→21:47)
[2020-08-05] MEDS: ISOSORBIDE MONONITRATE 30 MG TAB.ER.24H PO SCH (09:14)
[2020-08-05] MEDS: AZITHROMYCIN 500 MG in DEXTROSE 5%-WATER 250 ML IV SCH (09:14)
[2020-08-05] MEDS: DOCUSATE SODIUM 100 MG CAPSULE PO SCH ×2 (09:14→17:16)
[2020-08-05] MEDS: GUAIFENESIN 600 MG TABLET.SA PO SCH ×2 (09:14→21:47)
[2020-08-05] MEDS: PREDNISONE 20 MG TABLET PO SCH (09:14)
[2020-08-05] MEDS: INSULIN LISPRO 100 UNIT/ML 3 ML VIAL SUBCUT SCH ×7 (09:15→21:48)
--- NOTE | 2020-08-05 12:59 | PDOC PROGRESS REPORT ---
Subjective Progress Note for:: 08/05/20 Subjective:: The patient is a 54-year-old female with a past medical history of hypertension, asthma, COPD, sleep apnea, migraines, DM 2, and obesity who was admitted 08/03/2020 with Acute respiratory failure with hypoxia and hypercapnia secondary to community-acquired pneumonia. Patient was seen on morning rounds. She is found resting in bed, comfortably, on room air. She was sleeping, but woke easily. Complains of fatigue, bilateral ear discomfort, and slight increase in cough. Continues to have associated pleuritic chest pain. Despite this, she states she is feeling somewhat better. Has remained afebrile throughout this admission. She denies fever, chills, palpitations, orthopnea, abdominal pain, nausea vomiting and diarrhea. She has no questions or concerns at this time. No concerns per nursing. Reason For Visit: COMMUNITY ACQUIRED BILATERAL LOWER LOBD PNEUMONIA Physical Exam Vital Signs: Temp Pulse Resp BP Pulse Ox 98.2 F 75 18 106/49 L 95 08/05/20 11:09 08/05/20 11:09 08/05/20 11:09 08/05/20 11:09 08/05/20 11:09 Intake & Output 08/04/20 08/05/20 08/06/20 06:59 06:59 06:59 Intake Total 2240 880 Output Total 4000 1 Balance -1760 879 Weight 128.4 kg 118.6 kg General appearance: PRESENT: no acute distress, cooperative, obese, well- developed, well-nourished Head exam: PRESENT: atraumatic, normocephalic Eye exam: PRESENT: conjunctiva pink, EOMI, PERRLA. ABSENT: scleral icterus Mouth exam: PRESENT: moist, tongue midline Respiratory exam: PRESENT: rhonchi, symmetrical, unlabored, wheezes, other - room air. ABSENT: rales Cardiovascular exam: PRESENT: RRR. ABSENT: diastolic murmur, rubs, systolic murmur Vascular exam: PRESENT: normal capillary refill Extremities exam: PRESENT: full ROM. ABSENT: calf tenderness, clubbing, pedal edema Musculoskeletal exam: PRESENT: ambulatory Neurological exam: PRESENT: alert, awake, oriented to person, oriented to place, oriented to time, oriented to situation, CN II-XII grossly intact. ABSENT: motor sensory deficit Psychiatric exam: PRESENT: appropriate affect, normal mood. ABSENT: homicidal ideation, suicidal ideation Skin exam: PRESENT: dry, intact, warm. ABSENT: cyanosis, rash Results Laboratory Results: 08/04/20 04:54 08/04/20 04:54 08/03/20 03:45 Blood Blood Culture (PCR) - Final Staphylococcus Species 08/02/20 08/02/20 08/02/20 21:52 21:52 21:52 Creatine Kinase 95 CK-MB (CK-2) 0.95 Troponin I < 0.012 NT-Pro-B Natriuret Pep 81 08/03/20 00:56 Creatine Kinase CK-MB (CK-2) Troponin I < 0.012 NT-Pro-B Natriuret Pep Assessment and Plan - Diagnosis (1) Community acquired bilateral lower lobe pneumonia Is this a current diagnosis for this admission?: Yes Plan: Blood cultures show coag negative staph in 1 set otherwise negative at 48 hours Sputum cultures pending Covid negative Patient is provided supplemental oxygen as needed maintain saturations greater than 89%. Patient is empirically placed on IV azithromycin and Rocephin; day #3. Scheduled and as needed nebulizer treatments. He is placed on Robitussin as needed. Pulmonary toilet is encouraged with incentive spirometer, flutter valve, early ambulation. (2) COPD (chronic obstructive pulmonary disease) Qualifiers: COPD type: unspecified COPD Qualified Code(s): J44.9 - Chronic obstructive pulmonary disease, unspecified Is this a current diagnosis for this admission?: Yes Plan: Patient has a history of oxygen dependent COPD. Will provide supplemental oxygen and BiPAP as needed to maintain saturations greater than 89%. Start on scheduled and as needed nebulizer treatments. Continue prednisone therapy Mucinex twice daily. Robitussin as needed. Pulmonary toilet is encouraged with incentive spirometer, flutter valve, and early ambulation. (3) Acute respiratory failure with hypoxia and hypercapnia Is this a current diagnosis for this admission?: Yes Plan: Significantly improved. Secondary to #1 and 2 Evaluation and management as above (4) Obstructive sleep apnea Is this a current diagnosis for this admission?: Yes Plan: BiPAP nightly and as needed; transition to CPAP as respiratory status improves (5) Diabetes mellitus type 2 in obese Is this a current diagnosis for this admission?: Yes Plan: A1c 6.9% Continue decreased Lantus dose; 30 units nightly (takes 50 units at home) Continue AC coverage w/ Humalog Patient is placed on a consistent carb diet. Accu-Cheks before meals and at bedtime with Humalog for sliding scale coverage. Hypoglycemia protocol in place. (6) Person under investigation for COVID-19 Is this a current diagnosis for this admission?: Yes Plan: Ruled out - Time Time Spent with patient: 25-34 minutes Medications reviewed and adjusted accordingly: Yes Anticipated Discharge Disposition: Home, Self Care Anticipated Discharge Timeframe: within 24 hours
[2020-08-05] MEDS: FLUTICASONE NASAL SPRAY 50 MCG/SPRY 120 SPRAY/16 GM NASL SCH (16:16)
[2020-08-05] MEDS ORDERED: INSULIN GLARGINE,HUM.REC.ANLOG 1,000 UNIT/10 ML VIAL SUBCUT SCH ×2 (18:00)
[2020-08-05] MEDS: TRAZODONE HCL 50 MG TABLET PO SCH (21:47)
[2020-08-05] MEDS: ATORVASTATIN CALCIUM 10 MG TABLET PO SCH (21:47)
[2020-08-05] MEDS: CEFTRIAXONE 1 GM/D5W RTU 1 GM/50 ML RTUPB IV SCH (21:49)
[2020-08-06] MEDS: HEPARIN SOD (PORCINE) 5,000 UNIT/ML 1 ML VIAL SUBCUT SCH (05:12)
[2020-08-06] MEDS: GABAPENTIN 300 MG CAPSULE PO SCH (05:12)
[2020-08-06 06:16] LABS: HEMATOCRIT 38.8 % (36.0-47.0); HEMOGLOBIN 12.8 g/dL (12.0-15.5); MEAN CORPUSCULAR HEMOGLOBIN 27.7 pg (27.0-33.4); MEAN CORPUSCULAR HGB CONC 33.1 g/dL (32.0-36.0); MEAN CORPUSCULAR VOLUME 84 fl (80-97); PLATELET COUNT 259 10^3/uL (150-450); RED BLOOD COUNT 4.63 10^6/uL (3.72-5.28); RED CELL DISTRIBUTION WIDTH 14.5 % (11.5-14.0); WHITE BLOOD COUNT 5.5 10^3/uL (4.0-10.5)
[2020-08-06] MEDS: IPRATROPIUM/ALBUTEROL 0.5-2.5 MG/3 ML AMPUL NEB SCH (08:55)
[2020-08-06] MEDS: INSULIN LISPRO 100 UNIT/ML 3 ML VIAL SUBCUT SCH ×2 (09:12→09:13)
[2020-08-06] MEDS: PREDNISONE 20 MG TABLET PO SCH (09:13)
[2020-08-06] MEDS: ISOSORBIDE MONONITRATE 30 MG TAB.ER.24H PO SCH (09:13)
[2020-08-06] MEDS: GUAIFENESIN 600 MG TABLET.SA PO SCH (09:13)
[2020-08-06] MEDS: DOCUSATE SODIUM 100 MG CAPSULE PO SCH (09:14)
[2020-08-06] MEDS: FAMOTIDINE 20 MG TABLET PO SCH (09:14)
[2020-08-06] MEDS: AZITHROMYCIN 500 MG in DEXTROSE 5%-WATER 250 ML IV SCH (09:18)
[2020-08-06] MEDS: FLUTICASONE NASAL SPRAY 50 MCG/SPRY 120 SPRAY/16 GM NASL SCH (09:18)
[2020-08-06 11:03] VITALS: BP 145/66
--- NOTE | 2020-08-08 15:34 | PDOC DISCHARGE SUMMARY ---
Impression - Admit/DC Date/PCP Admission Date/Primary Care Provider: 08/03/20 03:44 ILEANA ROBERTS MD Discharge Date: 08/06/20 - Discharge Diagnosis (1) Community acquired bilateral lower lobe pneumonia Is this a current diagnosis for this admission?: Yes (2) COPD (chronic obstructive pulmonary disease) Is this a current diagnosis for this admission?: Yes (3) Acute respiratory failure with hypoxia and hypercapnia Is this a current diagnosis for this admission?: Yes (4) Obstructive sleep apnea Is this a current diagnosis for this admission?: Yes (5) Diabetes mellitus type 2 in obese Is this a current diagnosis for this admission?: Yes (6) Person under investigation for COVID-19 Is this a current diagnosis for this admission?: Yes - Additional Information Resuscitation Status: Full Code Discharge Diet: Diabetic Discharge Activity: Activity As Tolerated, Balance Activity w/Rest, Slowly Incre ase Activity Referrals: ILEANA ROBERTS MD [Primary Care Provider] - 08/07/20 11:15 am Prescriptions: Albuterol Sulfate [Albuterol Sulfate Hfa] 1 puff IH Q4HP PRN #1 hfa.aer.ad PRN Reason: Shortness Of Breath Amoxicillin/Potassium Clav [Augmentin 875-125 Tablet] 1 tab PO Q12 #14 tablet Prednisone [Deltasone 20 mg Tablet] 60 mg PO DAILY #12 tablet Fluticasone Propionate [Flonase Nasal [place] 50 Mcg/[place] 16 gm] 1 spray NASL DAILY #1 spray.pump Home Medications: Trazodone HCl 300 mg PO QHS 12/21/15 Gabapentin [Neurontin 300 mg Capsule] 600 mg PO Q8 06/17/19 Pantoprazole Sodium 40 mg PO Q6AM 06/17/19 Pravastatin Sodium 40 mg PO QHS 06/17/19 Furosemide [Lasix 40 mg Tablet] 40 mg PO DAILYP PRN 08/03/20 Hydrocodone/Acetaminophen [[place] 10-325 Tablet] 1 tab PO Q8HP PRN 08/03/20 Hydroxyzine Pamoate [Vistaril 50 mg Capsule] 50 mg PO Q8 08/03/20 Insulin Glargine,Hum.rec.anlog [Lantus Insulin 100 Unit/1 ml 10 ml] 50 unit SQ QPM 08/03/20 Insulin Lispro [Humalog Insulin (Lispro) 100 unit/mL] 8 unit SQ AC 08/03/20 Isosorbide Mononitrate [Imdur 30 mg Tablet.er] 30 mg PO DAILY 08/03/20 Polyethylene Glycol 3350 [Miralax Powder 17 gm/Packet] 1 packet PO Q2D 08/03/20 Vilazodone HCl [Viibryd] 20 mg PO QAM 08/03/20 Acetaminophen [Tylenol 325 mg Tablet] 650 mg PO Q4HP PRN tablet 08/06/20 Albuterol Sulfate [Albuterol Sulfate Hfa] 1 puff IH Q4HP PRN #1 hfa.aer.ad 08/06/20 Amoxicillin/Potassium Clav [Augmentin 875-125 Tablet] 1 tab PO Q12 #14 tablet 08/06/20 Docusate Sodium [Colace 100 mg Capsule] 100 mg PO BID capsule 08/06/20 Fluticasone Propionate [Flonase Nasal [place] 50 Mcg/[place] 16 gm] 1 spray NASL DAILY #1 spray.pump 08/06/20 Prednisone [Deltasone 20 mg Tablet] 60 mg PO DAILY #12 tablet 08/06/20 History of Present Illiness History of Present Illness: Per H&P by Dr. Mandujano: OLY SOTELO is a 54 year old female who presented to the emergency room with acute dyspnea. She admits waking from sleep at 8:30 PM with severe shortness of breath and a moderately intense sensation of tightness in her left lower anterior chest radiating to her left lower lateral chest. She any associated or accompanying signs and symptoms. She tried drinking some fluids but this caused choking and made her feel worse. She denies prior similar episodes. She admits a history of obstructive sleep apnea and a recent diagnosis of COPD. She uses CPAP every night. She has not identified any additional aggravating or ameliorating factors for her acute dyspnea. In the emergency room she was found to have hypoxia and bibasilar groundglass opacities on her chest x-ray. She required supplemental oxygen to maintain an adequate O2 saturation. She was started on IV antibiotic therapy for community-acquired pneumonia and given Decadron 10 mg IV x1 in the ER. COVID-19 testing was performed in the emergency room. Patient was subsequently admitted to the hospital for further evaluation and treatment. Hospital Course Hospital Course: (1) Community acquired bilateral lower lobe pneumonia Blood cultures grew staph capitis and staph hominis; both contaminants in 1 set. Otherwise negative at 48 hours Sputum cultures were not obtained. Covid negative Patient was provided supplemental oxygen and supported with scheduled and as needed nebulizers. Patient was empirically placed on IV azithromycin and Rocephin; day #3. Discharged on Augmentin to complete antibiotic course. Robitussin as needed. Pulmonary toilet is encouraged with incentive spirometer, flutter valve, early ambulation. (2) COPD (chronic obstructive pulmonary disease) Patient has a history of oxygen dependent COPD. She was provided supplemental oxygen and BiPAP as needed to maintain saturations greater than 89%. Supported with scheduled and as needed nebulizer treatments. Initially received IV dexamethasone and transition to oral prednisone therapy to complete steroid course post discharge. Pulmonary toilet encouraged with incentive spirometer, flutter valve, and early ambulation. (3) Acute respiratory failure with hypoxia and hypercapnia Resolved Secondary to #1 and 2 Evaluation and management as above (4) Obstructive sleep apnea Initially supported with BiPAP nightly and as needed; transitioned to CPAP as respiratory status improves (5) Diabetes mellitus type 2 in obese A1c 6.9% Resume outpatient regiment upon discharge. Continue consistent carb diet. (6) Person under investigation for COVID-19 Ruled out Physical Exam Vital Signs: Temp Pulse Resp BP Pulse Ox 97.8 F 74 18 145/66 H 95 08/06/20 11:00 08/06/20 11:00 08/06/20 11:00 08/06/20 11:00 08/06/20 11:00 Intake & Output 08/07/20 08/08/20 08/09/20 06:59 06:59 06:59 Intake Total 250 Balance 250 General appearance: PRESENT: no acute distress, cooperative, obese, well- developed, well-nourished Head exam: PRESENT: atraumatic, normocephalic Eye exam: PRESENT: conjunctiva pink, EOMI, PERRLA. ABSENT: scleral icterus Mouth exam: PRESENT: moist, tongue midline Respiratory exam: PRESENT: clear to auscultation malena, symmetrical, unlabored, other - room air. ABSENT: rales, rhonchi, wheezes Cardiovascular exam: PRESENT: RRR. ABSENT: diastolic murmur, rubs, systolic murmur Vascular exam: PRESENT: normal capillary refill Extremities exam: PRESENT: full ROM. ABSENT: calf tenderness, clubbing, pedal edema Musculoskeletal exam: PRESENT: ambulatory Neurological exam: PRESENT: alert, awake, oriented to person, oriented to place, oriented to time, oriented to situation, CN II-XII grossly intact. ABSENT: motor sensory deficit Psychiatric exam: PRESENT: appropriate affect, normal mood. ABSENT: homicidal ideation, suicidal ideation Skin exam: PRESENT: dry, intact, warm. ABSENT: cyanosis, rash Results Laboratory Results: WBC 5.5 10^3/uL (4.0-10.5) 08/06/20 05:04 RBC 4.63 10^6/uL (3.72-5.28) 08/06/20 05:04 Hgb 12.8 g/dL (12.0-15.5) 08/06/20 05:04 Hct 38.8 % (36.0-47.0) 08/06/20 05:04 MCV 84 fl (80-97) 08/06/20 05:04 MCH 27.7 pg (27.0-33.4) 08/06/20 05:04 MCHC 33.1 g/dL (32.0-36.0) 08/06/20 05:04 RDW 14.5 % (11.5-14.0) H 08/06/20 05:04 Plt Count 259 10^3/uL (150-450) 08/06/20 05:04 Lymph % (Auto) 39.8 % (13-45) 08/02/20 21:52 [place] % (Auto) 6.2 % (3-13) 08/02/20 21:52 Eos % (Auto) 3.0 % (0-6) 08/02/20 21:52 Baso % (Auto) 0.9 % (0-2) 08/02/20 21:52 Absolute Neuts (auto) 3.3 10^3/uL (1.7-8.2) 08/02/20 21:52 Absolute Lymphs (auto) 2.6 10^3/uL (0.5-4.7) 08/02/20 21:52 Absolute Monos (auto) 0.4 10^3/uL (0.1-1.4) 08/02/20 21:52 Absolute Eos (auto) 0.2 10^3/uL (0.0-0.6) 08/02/20 21:52 Absolute Basos (auto) 0.1 10^3/uL (0.0-0.2) 08/02/20 21:52 Seg Neutrophils % 50.1 % (42-78) 08/02/20 21:52 D-Dimer 0.65 ug/mL (0.00-0.50) H 08/03/20 10:19 Carbonic Acid 1.71 mmol/L (1.05-1.35) H 08/02/20 22:56 HCO3/H2CO3 Ratio 16:1 08/02/20 22:56 ABG pH 7.31 (7.35-7.45) L 08/02/20 22:56 ABG pCO2 56.7 mmHg (35-45) H 08/02/20 22:56 ABG pO2 56.4 mmHg (80-100) L 08/02/20 22:56 ABG HCO3 27.8 mmol/L (20-24) H 08/02/20 22:56 ABG Total CO2 29.5 mmol/L (21-25) H 08/02/20 22:56 ABG O2 Saturation 86.1 % (94-98) L 08/02/20 22:56 ABG Base Excess 0.4 mmol/L 08/02/20 22:56 FiO2 ROOM AIR 08/02/20 22:56 Sodium 136.5 mmol/L (137-145) L 08/04/20 04:54 Potassium 4.5 mmol/L (3.6-5.0) 08/04/20 04:54 Chloride 101 mmol/L (98-107) 08/04/20 04:54 Carbon Dioxide 30 mmol/L (22-30) 08/04/20 04:54 Anion Gap 6 (5-19) 08/04/20 04:54 BUN 18 mg/dL (7-20) 08/04/20 04:54 Creatinine 0.63 mg/dL (0.52-1.25) 08/04/20 04:54 Est GFR ( Amer) > 60 (>60) 08/04/20 04:54 Est GFR (MDRD) Non-Af > 60 (>60) 08/04/20 04:54 Glucose 194 mg/dL (75-110) H 08/04/20 04:54 POC Glucose 193 mg/dL (70-110) H 08/06/20 06:26 Hemoglobin A1c % 6.9 % (4.7-6.0) H 08/04/20 04:54 Calcium 9.4 mg/dL (8.4-10.2) 08/04/20 04:54 Total Bilirubin 0.4 mg/dL (0.2-1.3) 08/04/20 04:54 Direct Bilirubin 0.3 mg/dL (0.0-0.4) 08/04/20 04:54 Neonat Total Bilirubin Not Reportable 08/04/20 04:54 Neonat Direct Bilirubin Not Reportable 08/04/20 04:54 Neonat Indirect Bili Not Reportable 08/04/20 04:54 AST 21 U/L (14-36) 08/04/20 04:54 ALT 19 U/L (<35) 08/04/20 04:54 Alkaline Phosphatase 75 U/L (38-126) 08/04/20 04:54 Creatine Kinase 95 U/L (30-135) 08/02/20 21:52 CK-MB (CK-2) 0.95 ng/mL (<4.55) 08/02/20 21:52 Troponin I < 0.012 ng/mL 08/03/20 00:56 NT-Pro-B Natriuret Pep 81 pg/mL (<125) 08/02/20 21:52 Total Protein 5.6 g/dL (6.3-8.2) L 08/04/20 04:54 Albumin 3.3 g/dL (3.5-5.0) L 08/04/20 04:54 COVID-19 Source See comment 08/03/20 03:58 COVID-19 (DANIEL) Not Detected (Not Detect) 08/03/20 03:58 08/02/20 08/02/20 08/03/20 21:52 21:52 00:56 CK-MB (CK-2) 0.95 Troponin I < 0.012 < 0.012 NT-Pro-B Natriuret Pep 81 Plan Plan of Treatment: Patient is discharged home in stable condition. She is advised to follow-up with her primary care provider within 1 week. She is instructed to take her medications as prescribed. Eat a consistent carb diet. Complete full course of Augmentin and prednisone. Avoid known respiratory triggers. Return to the emergency department, as needed, for concerning symptoms. Time Spent: Greater than 30 Minutes Stroke Is this a Stroke Patient?: No Acute Heart Failure Is this a Heart Failure Patient?: No
== END 2020-08-06 11:30 | disposition home or self-care (01) | DRG 193 ==
LOC: ER 21:26 → EH 08-03 03:44 → 3N 08-03 05:15 → 4W 08-04 16:17
PROVIDERS: ADMIT Emergency Medicine; ATTEND Registered Nurse
PROC: 5A09457 Assistance with Respiratory Ventilation, 24-96 Consecutive Hours, Continuous Positive Airway Pressure (ICD-10-PCS; principal; 2020-08-04)
DX: J18.9 Pneumonia, unspecified organism (principal); J96.02 Acute respiratory failure with hypercapnia; J96.01 Acute respiratory failure with hypoxia; J44.0 Chronic obstructive pulmonary disease with (acute) lower respiratory infection; I10 Essential (primary) hypertension; J44.9 Chronic obstructive pulmonary disease, unspecified; G47.33 Obstructive sleep apnea (adult) (pediatric); E11.9 Type 2 diabetes mellitus without complications; Z20.828 Contact with and (suspected) exposure to other viral communicable diseases; Z79.4 Long term (current) use of insulin; F32.9 Major depressive disorder, single episode, unspecified; Z88.1 Allergy status to other antibiotic agents; Z79.899 Other long term (current) drug therapy; E66.01 Morbid (severe) obesity due to excess calories; G43.909 Migraine, unspecified, not intractable, without status migrainosus; Z95.0 Presence of cardiac pacemaker
CPT/HCPCS: 36415; 36600; 71045; 80053; 82550; 82553; 82803; 82962; 83036; 83880; 84484; 85025; 85027; 85379; 87040; 87077; 87150; 87186; 87635; 93005; 93010; 94640; 94660; 94667; 94799; 99285; C9803; J0456; J0696; J1100; J1644; J1815; J2270; J3490; J7060; J7512